=== PATIENT | female | born 1970 | race Caucasian/White ===

== ENCOUNTER → 2018-08-09 13:48 | Outpatient (CLI) | payer MEDICAID, SELFPAY ==
--- NOTE | 2018-08-09 13:50 | US_ITS ---
US transvaginal HISTORY: ITS.REASON: POST MENOPAUSAL BLEEDING, DUB ORDERING PHYSICIAN: Laura Philippe APRN PATIENT AGE: 47 years Comparison: None FINDINGS: The uterus is enlarged at 10.5 x 6 x 7.4 cm with a combined endometrial thickness of 26 mm. There is a 13 x 5 mm area of decreased echogenicity in the anterior aspect of the uterine wall and measures fibroid. There is an additional isoechoic area in the anterior aspect of the uterus measuring approximately 1 cm and may represent a uterine polyp. An area of increased echogenicity is present in the fundus of the uterus and 18 x 10 mm consistent with a fibroid. There is a septated left ovarian cyst measuring 4.3 x 3 cm. The right ovary has an unremarkable appearance at 2.7 x 2.3 cm. Small amount fluid is present in the cul-de-sac. IMPRESSION: 1. Enlarged uterus with thickened endometrium and possible endometrial polyp along with at least 2 uterine fibroids. 3. 4 cm septated left ovarian cyst
== END ==
PROVIDERS: PCP Nurse Practitioner Family; Visit Provider Nurse Practitioner Family
DX: N95.9 Unspecified menopausal and perimenopausal disorder (principal); N93.9 Abnormal uterine and vaginal bleeding, unspecified
CPT/HCPCS: 76830

== ENCOUNTER → 2018-08-16 11:08 | Outpatient (CLI) | payer MEDICAID, SELFPAY ==
--- NOTE | 2018-08-16 11:13 | XR_ITS ---
XR ankle wt bearing LT min 3V HISTORY: ITS.REASON: pain ORDERING PHYSICIAN: Elmira Flores DPM PATIENT AGE: 47 years Comparison: 03/28/2018 FINDINGS: Status post ORIF of the distal fibula with a lateral bone plate and multiple screws. There are 2 screws present within the medial malleoli region. The most medial of these 2 screws is fractured in its center aspect with minimal distraction of the ends of the screw by 2 mm. Overall not significant change. There remains good alignment. There are mild posttraumatic degenerative changes at the ankle joint. Ankle mortise is slightly widened. There is some calcification of the interosseous region of the distal tib-fib IMPRESSION: Overall no change status post ORIF of the ankle with a fractured screw in the medial malleoli region and mild widening of the ankle mortise
--- NOTE | 2018-08-16 11:13 | XR_ITS ---
XR ankle wt bearing RT min 3V HISTORY: ITS.REASON: pain ORDERING PHYSICIAN: Elmira Flores DPM PATIENT AGE: 47 years Comparison: None FINDINGS: No fracture or dislocation. No lytic or blastic change. There is normal mineralization.. The joint spaces are well-preserved. No significant degenerative/arthritic changes. No erosive changes evident. IMPRESSION: Negative ankle, no acute finding
== END ==
PROVIDERS: PCP Nurse Practitioner Family; Visit Provider Podiatrist
DX: M25.572 Pain in left ankle and joints of left foot (principal); M25.571 Pain in right ankle and joints of right foot
CPT/HCPCS: 73610

== ENCOUNTER → 2018-08-18 09:20 | Outpatient (CLI) | payer MEDICAID, SELFPAY ==
--- NOTE | 2018-08-18 09:23 | US_ITS ---
US liver HISTORY: Follow-up liver lesions ITS.REASON: liver cyst ORDERING PHYSICIAN: Roberto Billingsley MD PATIENT AGE: 47 years COMPARISON: None FINDINGS: PANCREAS:Unremarkable. No obvious mass or abnormal fluid collection. No ductal dilatation LIVER:There is a hyperechoic focus in the hepatic dome measuring 13 mm. There has been a prior cholecystectomy with common duct dilatation of 9 mm. Portal vein has an unremarkable appearance. RIGHT KIDNEY:Unremarkable. Normal size and echogenicity. No hydronephrosis Gallbladder: Prior cholecystectomy. Common duct is enlarged at 1 cm. There is mild intrahepatic biliary prominence. IMPRESSION: 1. 13 mm hyperechoic hepatic lesion in the right hepatic lobe which may correspond to the isodensity noted on the CT scan. Differential diagnosis would include hemangioma, focal nodular hyperplasia, or hepatic adenoma. A hyperechoic metastatic focus is included in the differential diagnosis. Old ultrasound is performed at another institution and not available for comparison. COMPARISON may be performed if that study is made available. Suggest 3 month sonographic follow-up to confirm stability. 2. Prior cholecystectomy with intra and extrahepatic biliary ductal dilatation
== END ==
PROVIDERS: PCP Nurse Practitioner Family; Visit Provider Obstetrics & Gynecology
DX: K76.89 Other specified diseases of liver (principal)
CPT/HCPCS: 76705

== ENCOUNTER → 2018-08-30 15:55 | Outpatient (CLI) | payer MEDICAID, SELFPAY ==
[2018-08-30 16:16] LABS: Hematocrit 34.5 % (37.0-47.0); Hemoglobin 11.5 g/dL (12.2-16.2)
== END ==
PROVIDERS: Visit Provider Obstetrics & Gynecology
DX: D21.9 Benign neoplasm of connective and other soft tissue, unspecified (principal)
CPT/HCPCS: 36415; 85014; 85018

== ENCOUNTER → 2018-09-13 14:06 | Outpatient (CLI) | payer MEDICAID, SELFPAY ==
[2018-09-13 14:08] LABS: Microscopic, Urine URINE MICROSCOPIC (MICROSCOPIC)
[2018-09-13 14:59] LABS: Appearance,Urine CLEAR (Clear); Bilirubin,Urine Negative (Negative); Blood, Urine TRACE-L (Negative); Color,Urine YELLOW (Yellow); Glucose,Urine (UA) Negative (Negative); Ketones,Urine Negative (Negative); Leukocyte Esterase,Urine TRACE (Negative); Nitrate,Urine Negative (Negative); PH,Urine 6.5 (5.0-8.5); Protein,Urine TRACE (Negative); Urobilinogen,Urine 0.2 EU/dl (0.2)
[2018-09-13 15:02] LABS: Basophils % 0.8 % (0.1-2.0); Eosinophils % 1.5 % (0.1-12.0); Hematocrit 27.7 % (37.0-47.0); Hemoglobin 8.5 g/dL (12.2-16.2); Lymphocytes % 50.9 % (10-50); Mean Corpuscular HGB Conc 30.6 g/dL (31.8-35.4); Mean Corpuscular Hemoglobin 27.8 pg (27.0-31.2); Mean Corpuscular Volume 90.8 fl (81-99); Mean Platelet Volume 8.4 fl (7.4-10.4); Monocytes # 0.3 K/mm3 (0.1-1.0); Monocytes % 12.8 % (1.7-9.3); Neutrophils # 0.7 K/mm3 (1.8-7.8); Platelet Count 366 K/mm3 (142-424); Red Blood Count 3.05 M/mm3 (4.20-5.40); Red Cell Distribution Width 13.1 % (11.5-17.5)
[2018-09-13 15:07] LABS: MANUAL DIFFERENTIAL MANUAL DIFFERENTIAL (MANUAL DIFF)
[2018-09-13 15:30] LABS: Bacteria,Urine 1+ /lpf; Mucus,Urine 1+ /lpf
[2018-09-13 16:50] LABS: Alanine Aminotransferase 39 U/L (12-78); Albumin Level 3.4 gm/dL (3.4-5.0); Albumin/Globulin Ratio 1.1 (1.1-1.8); Alkaline Phosphatase 117 U/L (46-116); Anion Gap 15.5 mEq/L (5-15); Aspartate Amino Transferase 22 U/L (15-37); Bilirubin,Total 0.3 mg/dL (0.2-1.0); Blood Urea Nitrogen 18 mg/dL (7-18); Calcium 8.4 mg/dL (8.5-10.1); Carbon Dioxide 23 mmol/L (21.0-32.0); Chloride 107 mmol/L (98-107); Creatinine,Serum 1.08 mg/dL (0.55-1.02); Estimated Glomerular Filt Rate 54 ml/min (>60); GFR (African American) 66 ML/MIN (>60); Glucose 125 mg/dL (74-106); Potassium 4.5 mmoL/L (3.5-5.1); Sodium 141 mmol/L (136-145); Total Protein,Serum 6.4 gm/dL (6.4-8.2)
[2018-09-13 18:04] LABS: Eosinophils % 2 % (0-3); Lymphocytes % 53 % (10-50); Monocytes % 10 % (2-9); Neutrophils % 34 % (42-76); Total Cells Counted 100
[2018-09-13 18:06] LABS: Hypochromasia 2+
[2018-09-13 18:07] LABS: Platelet Estimate Normal
[2018-09-13 19:04] LABS: HCG Qualitative, Serum Negative (Negative)
== END ==
PROVIDERS: Visit Provider Obstetrics & Gynecology
DX: Z01.818 Encounter for other preprocedural examination (principal); N93.8 Other specified abnormal uterine and vaginal bleeding; D25.9 Leiomyoma of uterus, unspecified
CPT/HCPCS: 36415; 80053; 81001; 84703; 85007; 85025; 86850; 87086

== ENCOUNTER 2018-09-14 08:58 | Outpatient (CLI) | payer MEDICAID, SELFPAY ==
[2018-09-14] VITALS (18 sets, daily range): BP systolic 100–130; BP diastolic 58–83; PULSE 66–103; RESP 16–18; TEMP 36.2–36.8; O2SAT 98–100; BMI 32.9
[2018-09-14 14:46] LABS: Hematocrit 34.5 % (37.0-47.0); Hemoglobin 11.7 g/dL (12.2-16.2)
== END 2018-09-14 14:50 | disposition home or self-care (01) ==
LOC: INF 08:58
PROVIDERS: Visit Provider Obstetrics & Gynecology
DX: D64.9 Anemia, unspecified (principal)
CPT/HCPCS: 36430; 85014; 85018; P9016

== ENCOUNTER 2018-09-15 06:07 | Day surgery (SDC) | payer MEDICAID, SELFPAY ==
[2018-09-14 10:15] VITALS: BMI 34.4
[2018-09-15] VITALS (9 sets, daily range): BP systolic 96–131; BP diastolic 64–78; PULSE 74–95; RESP 16–20; TEMP 36.2–36.5; O2SAT 94–100
[2018-09-15 07:26] LABS: Basophils % 0.5 % (0.1-2.0); Eosinophils # 0.1 K/mm3 (0.0-0.4); Eosinophils % 2.2 % (0.1-12.0); Lymphocytes # 1.9 K/mm3 (0.7-4.5); Lymphocytes % 63.9 % (10-50); Mean Corpuscular HGB Conc 34.6 g/dL (31.8-35.4); Mean Corpuscular Hemoglobin 29.9 pg (27.0-31.2); Mean Corpuscular Volume 86.3 fl (81-99); Mean Platelet Volume 7.8 fl (7.4-10.4); Monocytes # 0.2 K/mm3 (0.1-1.0); Monocytes % 7.7 % (1.7-9.3); Neutrophils # 0.8 K/mm3 (1.8-7.8); Neutrophils % 25.6 % (37.0-80.0); Platelet Count 331 K/mm3 (142-424); Red Blood Count 3.78 M/mm3 (4.20-5.40); Red Cell Distribution Width 13.5 % (11.5-17.5)
[2018-09-15 07:36] LABS: Hematocrit 32.7 % (37.0-47.0); Hemoglobin 11.1 g/dL (12.2-16.2)
[2018-09-15 07:37] LABS: MANUAL DIFFERENTIAL MANUAL DIFFERENTIAL (MANUAL DIFF)
--- NOTE | 2018-09-15 07:46 | HMH.OPNOTE ---
Date of procedure: 09/15/18 Pre-op Diagnosis:: 1. Dysfunctional uterine bleeding. 2. Endometrial hyperplasia. 3. Leiomyomata uteri. 4. Left adnexal mass. 5. Anemia. 6. History of breast cancer. 7. Status post transfusion. Post-op Diagnosis:: Same. Plus leukopenia on preop labs. Procedure performed:: Anesthesia initiated, but surgery canceled due to abnormal labs. Surgeon:: Roberto Billingsley MD Stone Breaker(s):: [facility] CURER ACID DRUM:: Bryson Gregorio Anesthesia: GETJennifer Estimated blood loss (mL): 0 Operative findings:: Surgery canceled due to abnormal lab work. Operative note:: None. Surgery canceled due to abnormal lab work. Post transfusion of 2 units of packed cells yesterday, patient's hemoglobin dafne to 11.1 g and hematocrit to 32.7%. However her white count was returned at 3.0 and her neutrophils at 25.6. Because of concern to the risk of postop infection and a compromised immune system, the surgery has been canceled for now--until the patient is cleared by her oncologist. Condition: stable Disposition: same day Specimens:: None. Complications:: None.
--- NOTE | 2018-09-15 07:49 | P.OP_ITS ---
Date of procedure: 09/15/18 Pre-op Diagnosis:: 1. Dysfunctional uterine bleeding. 2. Endometrial hyperplasia. 3. Leiomyomata uteri. 4. Left adnexal mass. 5. Anemia. 6. History of breast cancer. 7. Status post transfusion. Post-op Diagnosis:: Same. Plus leukopenia on preop labs. Procedure performed:: Anesthesia initiated, but surgery canceled due to abnormal labs. Surgeon:: Roberto Billingsley MD Encephalographer([facility]:: [facility] MEDICAL SCREENER:: Bryson Gregorio Anesthesia: GETJennifer Estimated blood loss (mL): 0 Operative findings:: Surgery canceled due to abnormal lab work. Operative note:: None. Surgery canceled due to abnormal lab work. Post transfusion of 2 units of packed cells yesterday, patient's hemoglobin dafne to 11.1 g and hematocrit to 32.7%. However her white count was returned at 3.0 and her neutrophils at 25.6. Because of concern to the risk of postop infection and a compromised immune system, the surgery has been canceled for now--until the patient is cleared by her oncologist. Condition: stable Disposition: same day Specimens:: None. Complications:: None.
--- NOTE | 2018-09-15 07:58 | HMH.ANESCL ---
[facility] Anesthesia Checklist - Patient Identification Patient Identification: Arm Band, Verbal (Name & ) - Structural Data Admitted From: Home Planned Operative Procedure/s: [facility] Consent for Planned Operative Procedure(s) Verified: Yes Verified Documents: History and Physical - NPO Status Verified Time NPO: 00:00 - Additional verifications Patient : No Anesthesia Reactions: No Hx Blood Transfusions: No Blood Transfusion Reaction: No Cephalosporin Allergy: No Previous Colonoscopy: No - Cardiovascular Assessment Heart Sounds: S1 & S2 Pulse Strength: Baseline Pulse Rhythm: Regular Peripheral Edema: No - Airway Assessment C-Spine Mobility Assessed: Yes TMJ Mobility Assessed: Yes Dentition: Good Dentition - Neurological Assessment Level of Consciousness: Awake, Alert, Appropriate Hx Seizures: No Numbness or tingling in extremities: No - Anesthesia Plan Anesthesia Risk discussed: Yes Anesthesia Plan: Verified ASA Class: II [facility] History I have reviewed the patient's past medical history: Yes Medical History: Reports:: Anxiety, Cancer, Depression, Hypertension Denies:: Diabetes Mellitus Type 1, Diabetes Mellitus Type 2, MRSA, Seizures *Have you ever received a pneumonia vaccine?: No *Have you received a flu vaccine this season?: No Other Medical History: Denies: Blood Transfusion Reaction Laterality Cases: Left: Breast Biopsy, Mastectomy Amputation: No Fractures: Yes (l foot) - *Social History Educational Level: Completed High School Smoking Status: Former smoker Tobacco Type: cigarettes # Packs/Day (cigarettes): 1 Alcohol Intake: never Alcohol Intake Frequency:: other Substance Use Type: denies use *Occupational Status:: unemployed, other Housing: house *Travel in the last 8 weeks: None - Psychiatric History Expresses thoughts of harming self/others: None Suicide Plan Description: No Plan Pschychiatric History:: Reports:: Anxiety, Depression Family Hx:: Cancer, Stroke, Heart Attack, Hypertension
--- NOTE | 2018-09-15 08:00 | P.PN_ITS ---
[facility] Anesthesia Record Part I Intake, IV Amount: 350 Estimated blood loss (mL): 0 Urine output (mL): 30 Blood Products used (#): none Blood Pressure: 122/78 SaO2: 94 Pulse Rate: 86 Respiratory Rate: 20 Temperature: 97.2 F Patient is:: Awake, Stable Stable to PACU at:: 07:56
--- NOTE | 2018-09-15 08:00 | P.PN_ITS ---
[facility] Anesthesia Record Part II Discharge Time: 08:26 Destination: Surgical Day Care (OP Surgery) PACU nurse assessment reviewed?: Yes Patient Condition:: Good Anesthesia Complications:: None Swallowing reflex intact?: Yes Cyanosis?: No
[2018-09-15 08:08] LABS: Lymphocytes % 66 % (10-50); Monocytes % 7 % (2-9); Neutrophils % 25 % (42-76); Total Cells Counted 100
[2018-09-15 08:12] LABS: Platelet Estimate Normal
--- NOTE | 2018-09-15 08:39 | PC.NURSE ---
Pt procedure cancelled after being sedated due to low WBC. Pt recovered from anesthesia no incisions made , no dressings. No pain
--- NOTE | 2018-09-15 10:50 | SUR.OPER ---
0716-Dr. Billingsley was notified at this time of patient's pre op lab results to verify that no additional lab work was needed prior to procedure. Induction of anesthesia was made by RANJANA Ochoa. ordered after induction of anesthesia for patient to have additional CBC lab work prior to incision. was notified of results from CBC and decision was made to abort the case. After reversal of anesthesia, patient was taken to recovery in stable condition.
== END 2018-09-15 08:57 | disposition home or self-care (01) ==
LOC: SDC 08:02
PROVIDERS: PCP Nurse Practitioner Family; Visit Provider Obstetrics & Gynecology
PROC: (CPT 58150; principal; 2018-09-15 07:30)
DX: N93.8 Other specified abnormal uterine and vaginal bleeding (principal); N85.00 Endometrial hyperplasia, unspecified; D25.9 Leiomyoma of uterus, unspecified; R19.09 Other intra-abdominal and pelvic swelling, mass and lump; D64.9 Anemia, unspecified; D72.819 Decreased white blood cell count, unspecified; C50.919 Malignant neoplasm of unspecified site of unspecified female breast
CPT/HCPCS: 58150; 85007; 85025; 96372; 96374

== ENCOUNTER → 2018-09-29 12:34 | Outpatient (CLI) | payer MEDICAID, SELFPAY ==
[2018-09-29 12:58] LABS: Basophils % 0.7 % (0.1-2.0); Eosinophils # 0.1 K/mm3 (0.0-0.4); Eosinophils % 1.7 % (0.1-12.0); Hematocrit 36.7 % (37.0-47.0); Hemoglobin 11.4 g/dL (12.2-16.2); Lymphocytes # 1.4 K/mm3 (0.7-4.5); Lymphocytes % 36.5 % (10-50); Mean Corpuscular HGB Conc 31.1 g/dL (31.8-35.4); Mean Corpuscular Hemoglobin 26.6 pg (27.0-31.2); Mean Corpuscular Volume 85.8 fl (81-99); Mean Platelet Volume 8.5 fl (7.4-10.4); Monocytes # 0.3 K/mm3 (0.1-1.0); Monocytes % 7.6 % (1.7-9.3); Neutrophils % 53.5 % (37.0-80.0); Platelet Count 227 K/mm3 (142-424); Red Blood Count 4.27 M/mm3 (4.20-5.40); Red Cell Distribution Width 13.4 % (11.5-17.5); White Blood Count 3.8 K/mm3 (4.8-10.8)
== END ==
PROVIDERS: Visit Provider Internal Medicine Hematology & Oncology
DX: D72.819 Decreased white blood cell count, unspecified (principal)
CPT/HCPCS: 36415; 85025

== ENCOUNTER 2018-10-18 10:00 | Outpatient (RCR) | payer MEDICAID, SELFPAY ==
--- NOTE | 2018-09-29 13:28 | HMH.PTOPWND ---
Rehab Outpt Wound Evaluation Rehab OP Wound Evaluation Start: 09/29/18 13:02 Freq: Status: Active Protocol: Document 09/29/18 13:19 MONTRELL (Rec: 09/29/18 13:28 PHORDAVINA [id number]) Electronically Signed By Trevor Guevara, PT 09/29/18 13:19 Subjective/History History History Pt is 47 yowf who presents with c/o increased pain and stiffness in the left UE ~ 2 yrs S/P left mastectomy without LN removal. She also reports c/o heaviness in the left UE at times. She reports tenderness in the superior left breast area and mildly in the upper left arm. She has hx of cervical fusion, left mastectomy, anxiety, and needs a KARINA but was unable to undergo the procedure due to poor blood counts at that time . Subjective Subjective She c/o pain in the left breast/shld 9/10 at worst. Lymphedema Eval Classification of Lymphedema Secondary Lymphedema Yes Stemmer's sign Stemmer's Sign no Stage of Lymphedema Lymphedema stages Stage 0 (subjective c/o heaviness and aching) Pain Scale Pain Scale (0-10) 9 Chemo Therapy Has received chemo therapy yes Affected Extremities Areas Affected by Lymphedema/Edema Left Upper Extremity,Left Breast,Left Axilla Manual Lymphatic Drainage Treatment Area MLD Treatment Area Left Upper Extremity,Left Breast,Left Axilla Wound Problems/Impairments Impairments Problems/Impairmments Palpation Tenderness,Impaired Recreational Activities, Increased Edema,Lymphedema Present,Subjective C/O Pain, Impaired Self Care/Self Management Prognosis Rehab Potential Good Clinical Impression Consistent with Diagnosis Yes Short Term Goals Number of Weeks 4 Decreased Palpation Tenderness Yes: to min Decrease Subjective C/O Pain Yes: 10/26 Patient to Understand Lymphedema Yes Treatment and Exercises Decrease Girth Measurments by (cm) Yes: by 5 cm Wharf Tender Goals Number of Weeks 8 Decreased Palpation Tenderness Yes: to none Decrease Subjective C/O Pain Yes: 08/26 Patient to be Ind w/ HEP Yes Patient to be In
== END 2018-10-18 10:05 | disposition home or self-care (01) ==
LOC: PT 10:00
PROVIDERS: Visit Provider Internal Medicine Medical Oncology
DX: I89.0 Lymphedema, not elsewhere classified (principal); Z85.3 Personal history of malignant neoplasm of breast
CPT/HCPCS: 97140; 97162

== ENCOUNTER → 2018-10-18 10:22 | Outpatient (CLI) | payer MEDICAID, SELFPAY ==
[2018-10-18 10:28] LABS: Microscopic, Urine URINE MICROSCOPIC (MICROSCOPIC)
[2018-10-18 10:49] LABS: Appearance,Urine CLEAR (Clear); Bilirubin,Urine Negative (Negative); Blood, Urine Negative (Negative); Color,Urine YELLOW (Yellow); Glucose,Urine (UA) Negative (Negative); Ketones,Urine Negative (Negative); Leukocyte Esterase,Urine Negative (Negative); Nitrate,Urine Negative (Negative); Protein,Urine Negative (Negative); Specific Gravity, Urine >= 1.030 (1.005-1.030); Urobilinogen,Urine 0.2 EU/dl (0.2)
[2018-10-18 10:53] LABS: Basophils % 0.7 % (0.1-2.0); Eosinophils # 0.1 K/mm3 (0.0-0.4); Eosinophils % 3.4 % (0.1-12.0); Hemoglobin 12.1 g/dL (12.2-16.2); Lymphocytes # 1.6 K/mm3 (0.7-4.5); Lymphocytes % 39.8 % (10-50); Mean Corpuscular HGB Conc 30.9 g/dL (31.8-35.4); Mean Corpuscular Hemoglobin 27.7 pg (27.0-31.2); Mean Corpuscular Volume 89.5 fl (81-99); Mean Platelet Volume 8.8 fl (7.4-10.4); Monocytes # 0.3 K/mm3 (0.1-1.0); Monocytes % 8.2 % (1.7-9.3); Neutrophils # 1.9 K/mm3 (1.8-7.8); Neutrophils % 47.9 % (37.0-80.0); Platelet Count 273 K/mm3 (142-424); Red Blood Count 4.36 M/mm3 (4.20-5.40); Red Cell Distribution Width 14.5 % (11.5-17.5)
[2018-10-18 11:04] LABS: Urine Pregnancy, HCG Qual. Negative (Negative)
[2018-10-18 11:51] LABS: RBC,Urine Occasional #/hpf (0-3); WBC,Urine Occasional #/hpf (0-3)
[2018-10-18 11:52] LABS: Bacteria,Urine Trace /lpf
[2018-10-18 12:22] LABS: Alanine Aminotransferase 29 U/L (12-78); Albumin Level 3.2 gm/dL (3.4-5.0); Alkaline Phosphatase 109 U/L (46-116); Anion Gap 14.4 mEq/L (5-15); Aspartate Amino Transferase 24 U/L (15-37); Bilirubin,Total 0.2 mg/dL (0.2-1.0); Blood Urea Nitrogen 17 mg/dL (7-18); Calcium 8.7 mg/dL (8.5-10.1); Carbon Dioxide 24 mmol/L (21.0-32.0); Chloride 107 mmol/L (98-107); Estimated Glomerular Filt Rate 53 ml/min (>60); GFR (African American) 64 ML/MIN (>60); Globulin 3.1 gm/dl (1.3-3.2); Glucose 93 mg/dL (74-106); Potassium 4.4 mmoL/L (3.5-5.1); Sodium 141 mmol/L (136-145); Total Protein,Serum 6.3 gm/dL (6.4-8.2)
== END ==
PROVIDERS: Visit Provider Obstetrics & Gynecology
DX: Z01.818 Encounter for other preprocedural examination (principal); N93.8 Other specified abnormal uterine and vaginal bleeding; D25.9 Leiomyoma of uterus, unspecified
CPT/HCPCS: 36415; 80053; 81001; 81025; 85025

== ENCOUNTER 2018-10-24 06:05 | Inpatient (IN) ==
--- NOTE | 2018-10-24 06:51 | Progress Note ---
[facility] Anesthesia Checklist - Patient Identification Patient Identification: Arm Band, Verbal (Name & ) - Structural Data Admitted From: Home Planned Operative Procedure/s: KARINA, BSO, Appy Consent for Planned Operative Procedure(s) Verified: Yes Verified Documents: Surgical Consent, History and Physical - NPO Status Verified Time NPO: 22:30 - Chart Verification Results Verified: CBC, BMP, UA - Additional verifications Patient : No Anesthesia Reactions: No - Airway Assessment C-Spine Mobility Assessed: Yes TMJ Mobility Assessed: Yes Dentition: Good Dentition - Neurological Assessment Level of Consciousness: Awake, Alert, Appropriate, Follows Commands Hx Seizures: No Numbness or tingling in extremities: No - Anesthesia Plan Anesthesia Risk discussed: Yes Anesthesia Plan: Verified ASA Class: III Anesthesia Type: General [facility] History I have reviewed the patient's past medical history: Yes Medical History: Reports:: Anxiety, Cancer (breast), Depression, Hypertension Denies:: Diabetes Mellitus Type 1, Diabetes Mellitus Type 2, Internal Pacemaker, Lung Disease, MRSA, Seizures *Have you ever received a pneumonia vaccine?: No *Have you received a flu vaccine this season?: Yes Other Medical History: Denies: Blood Transfusion Reaction Comment:: Obesity, chemotherapy Laterality Cases: Left: Breast Biopsy, Mastectomy Other Surgeries: Yes: Cholecystectomy, Other (ACDF, Foot sx, D&C). No: Pacemaker Amputation: No Fractures: No - *Social History Educational Level: Completed High School Smoking Status: Never smoker # Packs/Day (cigarettes): 1 Alcohol Intake: never Alcohol Intake Frequency:: other Substance Use Type: denies use *Occupational Status:: unemployed, other Housing: house Household Members: family *Travel in the last 8 weeks: None - Psychiatric History Pschychiatric History:: Reports:: Anxiety, Depression Family Hx:: Cancer, Stroke, Heart Attack, Hypertension
--- NOTE | 2018-10-24 08:36 | Operative Note ---
Date of procedure: 10/24/18 (Patient with known breast cancer and endometrial hyperplasia/leiomyomata uteri.) Pre-op Diagnosis:: 1. Dysfunctional uterine bleeding. 2. Endometrial hyperplasia. 3. Leiomyomata uteri. Post-op Diagnosis:: 1. Dysfunctional uterine bleeding. 2. Endometrial hyperplasia. 3. Leiomyomata uteri. Procedure performed:: Total abdominal hysterectomy, bilateral salpingo-oophorectomy. Surgeon:: Roberto Billingsley MD Water Treatment Operator(s):: DENICE Kaye CLOTHING PRESSER:: Bryson Gregorio Anesthesia: DIANA Estimated blood loss (mL): 300 Operative findings:: 1. Endometrial hyperplasia. 2. Leiomyomata uteri. Operative note:: After the patient was prepped and draped in usual fashion and general anesthesia was administered, a low Pfannenstiel incision was made across the midline, and the fat and fascia was in the usual fashion, bleeders being clamped and coagulated along the way. The peritoneum was entered with Metzenbaum scissors, and extended above and below. The bowel was packed away, and a self- retaining Troy retractor with bladder blade was placed. The uterus was sym metrically enlarged. Each tube and ovary was identified. Both ovaries were atrophic. The round ligament on either side was Fifi clamped, cut, and Fifi suture with #1 Vicryl, after which the bladder peritoneum was taken down with Metzenbaum scissors and protected with the bladder blade. The infundibulopelvic ligament on either side was Fifi clamped, cut, and Fifi suture with #1 Vicryl, thus including both adnexa within the uterine specimen. The uterine vessels, the cardinal and uterosacral ligaments were individually, bilaterally, Fifi clamped, cut, and Fifi sutured with #1 Vicryl. The vagina was entered anteriorly with a knife, and the uterine specimen was removed with Linda scissors. Giovani clamps were used to tent up the vaginal cuff, which was closed with a running locked suture of #1 Vicryl, to include the uterosacral ligament pedicles for vaginal support. Gelfoam was placed against the back of the vaginal cuff for hemostasis. The bladder peritoneum was reperitonealized with a running unlocked suture of 2-0 Vicryl. Irrigation was carried out, and there was no other pathology noted. The appendix appeared to be retrocecal and remains in situ. The peritoneum was grasped with 3 Whit clamps, and closed with a running semi-lock suture of 0 Vicryl. The muscle was approximated with a running unlocked suture of 0 Vicryl. The fascia was closed with a running locked suture of #1 Vicryl. The subcutaneous fat and Billy's fascia were closed with a running unlocked suture of 2-0 Vicryl. The skin was closed with a subcuticular suture of 3-0 Vicryl, and appropriately dressed. The sponge needle count was correct. The estimated blood loss was 300 cc. The urine was clear in the Cuellar catheter. The patient tolerated the procedure well, and was taken to PACU in excellent condition. She will be admitted postoperatively. Condition: stable Disposition: PACU Specimens:: Uterus and both adnexa Complications:: None
--- NOTE | 2018-10-24 08:40 | Progress Note ---
[facility] Anesthesia Record Part I Intake, IV Amount: 900 Estimated blood loss (mL): 300 Urine output (mL): 50 Blood Products used (#): none Blood Pressure: 145/88 SaO2: 100 Pulse Rate: 90 Respiratory Rate: 20 Temperature: 97.0 F Patient is:: Drowsy, Nasal O2, Stable Stable to PACU at:: 08:36
--- NOTE | 2018-10-24 08:41 | Progress Note ---
[facility] Anesthesia Record Part II Discharge Time: 09:06 Destination: Obstetric Gynecology Dept PACU nurse assessment reviewed?: Yes Patient Condition:: Good Anesthesia Complications:: None Swallowing reflex intact?: Yes Cyanosis?: No
[2018-10-24 11:33] LABS: Hematocrit 35.2 % (37.0-47.0); Hemoglobin 10.7 g/dL (12.2-16.2)
--- NOTE | 2018-10-24 11:34 | Pharmacy Consult Notes ---
[facility] Pharmacy VTE Monitoring - Patient Demographics Admission date: 10/24/18 Report Date: 10/24/18 Time: 11:34 Allergies/Adverse Reactions: Patient Allergies No Known Allergies Allergy (Verified 10/18/18 16:16) Height: 1.57 m Weight: 86.183 kg - VTE Risk Was VTE Risk Assessment Performed: Yes VTE Score: 4 VTE Risk Level: Low Risk - Prophylaxis VTE Prophylaxis Ordered?: Yes Types of VTE Prophylaxis: IPCS Thigh High Location of Applied Device: Bilateral Lower Extremeties - VTE Diagnosis Confirmed Treatment or plan recommended: Continue Current Treatment
--- NOTE | 2018-10-24 15:09 | Progress Note ---
Internal Medicine - PN: Subj *Date: 10/24/18 *Time: 15:08 Interval history: This is day of surgery. The patient is afebrile. Vital signs stable. Urine output good. Wound clean. Abdomen soft. Surgery has been explained to the patient. Impression: Stable. Exam Vital signs and Labs for Last 24 Hours: Temp Pulse Resp BP Pulse Ox 98.1 F 112 H 16 105/89 L 97 10/24/18 12:15 10/24/18 14:15 10/24/18 14:15 10/24/18 14:15 10/24/18 14:15 Laboratory Results - last 24 hr 10/24/18 07:15: Urine Color Yellow, Urine Appearance Clear, Urine pH 5.5, Ur Specific Cherry >= 1.030, Urine Protein Negative, Urine Glucose (UA) Negative, Urine Ketones Negative, Urine Blood Negative, Urine Nitrate Negative, Urine Bilirubin Negative, Urine Urobilinogen 0.2, Ur Leukocyte Esterase Negative, Urine WBC Occasional, Ur Squamous Epith Cells 5-10, Urine Bacteria Trace 10/24/18 11:20: Hgb 10.7 L, Hct 35.2 L I & O for Last 24 hours: Intake & Output 10/22/18 10/23/18 10/24/18 10/25/18 11:59 11:59 11:59 11:59 Intake Total 900 / 900 Balance 900 / 900
--- NOTE | 2018-10-25 07:06 | Progress Note ---
Internal Medicine - PN: Subj *Date: 10/25/18 *Time: 07:04 Interval history: This is postop day #1. The patient is afebrile. Vital signs stable. Wound clean. Abdomen soft. Cuellar is out and she has voided well. She is complaining of some itching (likely from pain medication), and has been given a dose of Benadryl. I am going to advance her diet and have her ambulate today. Exam Vital signs and Labs for Last 24 Hours: Temp Pulse Resp BP Pulse Ox 98.8 F 114 H 20 131/83 97 10/25/18 04:00 10/25/18 04:00 10/25/18 04:00 10/25/18 04:00 10/24/18 23:51 Laboratory Results - last 24 hr 10/24/18 07:15: Urine Color Yellow, Urine Appearance Clear, Urine pH 5.5, Ur Specific [place] >= 1.030, Urine Protein Negative, Urine Glucose (UA) Negative, Urine Ketones Negative, Urine Blood Negative, Urine Nitrate Negative, Urine Bilirubin Negative, Urine Urobilinogen 0.2, Ur Leukocyte Esterase Negative, Urine WBC Occasional, Ur Squamous Epith Cells 5-10, Urine Bacteria Trace 10/24/18 11:20: Hgb 10.7 L, Hct 35.2 L I & O for Last 24 hours: Intake & Output 10/22/18 10/23/18 10/24/18 10/25/18 11:59 11:59 11:59 11:59 Intake Total 900 / 900 2167 / 2167 Output Total 3450 / 3450 Balance 900 / 900 -1283 / -1283 Weight 190 lb
[2018-10-25 09:56] LABS: Basophils % 0.1 % (0.1-2.0); Eosinophils % 0.1 % (0.1-12.0); Hematocrit 33.2 % (37.0-47.0); Lymphocytes # 1.7 K/mm3 (0.7-4.5); Lymphocytes % 11.4 % (10-50); Mean Corpuscular HGB Conc 30.1 g/dL (31.8-35.4); Mean Corpuscular Volume 90.1 fl (81-99); Mean Platelet Volume 8.6 fl (7.4-10.4); Monocytes # 0.7 K/mm3 (0.1-1.0); Monocytes % 4.9 % (1.7-9.3); Neutrophils # 12.5 K/mm3 (1.8-7.8); Neutrophils % 83.4 % (37.0-80.0); Platelet Count 236 K/mm3 (142-424); Red Blood Count 3.69 M/mm3 (4.20-5.40); Red Cell Distribution Width 14.8 % (11.5-17.5)
[2018-10-25 10:41] LABS: Lymphocytes % 10 % (10-50); Monocytes % 5 % (2-9); Neutrophils % 84 % (42-76); Total Cells Counted 100
[2018-10-25 10:42] LABS: RBC Morphology Normal
--- NOTE | 2018-10-26 06:39 | Progress Note ---
Internal Medicine - PN: Subj *Date: 10/26/18 *Time: 06:37 Interval history: This is postop day #2. The patient is afebrile. Vital signs stable. Wound clean. Abdomen soft. She is passing flatus. She is eating and ambulating. Her urine output is good. She is having some vasomotor sweats (not a candidate for estrogen because of breast cancer). Impression: Improving. Exam Vital signs and Labs for Last 24 Hours: Temp Pulse Resp BP Pulse Ox 97.9 F 114 H 17 103/57 L 97 10/26/18 02:00 10/26/18 02:00 10/26/18 02:00 10/26/18 02:00 10/25/18 16:00 Laboratory Results - last 24 hr 10/25/18 09:08: WBC 15.0 H, RBC 3.69 L, Hgb 10.0 L, Hct 33.2 L, MCV 90.1, MCH 27.2, MCHC 30.1 L, RDW 14.8, Plt Count 236, MPV 8.6, Neut % (Auto) 83.4 H, Lymph % (Auto) 11.4, [place] % (Auto) 4.9, Eos % (Auto) 0.1, Baso % (Auto) 0.1, Neut # (Auto) 12.5 H, Lymph # (Auto) 1.7, [place] # (Auto) 0.7, Eos # (Auto) 0.0, Baso # (Auto) 0.0, Total Counted 100, Neutrophils % (Manual) 84 H, Band Neutrophils % 1.0, Lymphocytes % (Manual) 10, Monocytes % (Manual) 5, Platelet Estimate Normal, RBC Morphology Normal I & O for Last 24 hours: Intake & Output 10/23/18 10/24/18 10/25/18 10/26/18 11:59 11:59 11:59 11:59 Intake Total 900 / 900 2867 / 2867 600 / 600 Output Total 3450 / 3450 Balance 900 / 900 -583 / -583 600 / 600 Weight 190 lb
--- NOTE | 2018-10-27 08:44 | Progress Note ---
Internal Medicine - PN: Subj *Date: 10/27/18 *Time: 08:44 Interval history: This is postop day #3. The patient is afebrile. Vital signs stable. Wound clean. Abdomen soft. She is eating and ambulating and has had a bowel movement. Her hemoglobin is 10.0 g, but clinically stable. She will be discharged today. Exam Vital signs and Labs for Last 24 Hours: Temp Pulse Resp BP Pulse Ox 98.1 F 88 16 113/80 97 10/27/18 04:30 10/27/18 04:30 10/27/18 04:30 10/27/18 04:30 10/27/18 07:53 I & O for Last 24 hours: Intake & Output 10/24/18 10/25/18 10/26/18 10/27/18 11:59 11:59 11:59 11:59 Intake Total 900 / 900 2867 / 2867 600 / 600 360 / 360 Output Total 3450 / 3450 Balance 900 / 900 -583 / -583 600 / 600 360 / 360 Weight 190 lb
--- NOTE | 2018-10-27 08:47 | Discharge Summary ---
General - General Admission date:: 10/24/18 Discharge date: 10/27/18 (This 47-year-old white female was admitted for definitive treatment of dysfunctional uterine bleeding, leiomyoma uteri, and endometrial hyperplasia. She has been treated for breast cancer. On the date of admission, she was taken to the operating room, where she underwent a total abdominal hysterectomy and bilateral salpingo-nephrectomy, without complications. Her hemoglobin on admission was 12.1 g; postoperatively it is 10.0 g, but she is clinically stable. Postoperatively, the patient is doing well. She is eating and ambulating, and has had a bowel movement. Her wound is clean. Her abdomen is soft. Her hemoglobin on admission was 12.1 g; postoperatively it is 10.0 g, but she is clinically stable. She is discharged home on the third postoperative day on iron twice a day and on Dilaudid 2 mg (#20), 1 p.o. q. 6 age as needed pain. She is given appropriate instructions as to diet, exercise, and wound care, and she is to return the office in 2 weeks for follow-up. She is not a smoker. She did not receive postop hormone replacement because of her history of breast cancer.) Objective Vital signs: Temp Pulse Resp BP Pulse Ox 98.1 F 88 16 113/80 97 10/27/18 04:30 10/27/18 04:30 10/27/18 04:30 10/27/18 04:30 10/27/18 07:53 Discharge Plan - Patient Discharge Instructions Patient Instructions: Hysterectomy -- Open Surgery, DI for Surgical Site Infection - Follow up Plan Home Medications: Home Medications Medication Instructions Recorded Confirmed Type Lisinopril [Lisinopril 20mg Tab] 20 mg PO DAILY 05/25/18 10/24/18 History diclofenac sodium 50 mg 50 mg PO TIDWM 08/16/18 10/25/18 History tablet,delayed release quetiapine 50 mg tablet 50 mg PO DAILY 08/16/18 10/25/18 History Duloxetine HCl [Cymbalta] 120 mg PO HS 10/25/18 10/25/18 History hydrOXYzine HCl [Hydroxyzine HCl] 25 - 50 mg PO Q8HP PRN 10/25/18 10/25/18 History Prescriptions/Medication Reconciliation: No Action quetiapine 50 mg tablet 50 mg PO DAILY diclofenac sodium 50 mg tablet,delayed release 50 mg PO TIDWM Lisinopril [Lisinopril 20mg Tab] 20 mg PO DAILY hydrOXYzine HCl [Hydroxyzine HCl] 25 - 50 mg PO Q8HP PRN PRN Reason: Anxiety Duloxetine HCl [Cymbalta] 120 mg PO HS
== END 2018-10-27 11:20 | disposition home or self-care (01) | DRG 743 ==
LOC: 2ND 06:05 → OR 06:05 → OBSVTOIN 06:11 → OB 07:28
PROVIDERS: ADMIT Obstetrics & Gynecology; ATTEND Obstetrics & Gynecology
CPT/HCPCS: 36415; 81001; 85007; 85014; 85018; 85025; 96372; 96374; J2405; J2710

== ENCOUNTER → 2018-11-01 07:56 | Outpatient (CLI) | payer MEDICAID, SELFPAY ==
--- NOTE | 2018-11-01 07:56 | CT_ITS ---
CT ankle LT wo con INDICATION: , Pain, fracture, prior ORIF Surgical planning for revision of orthopedic hardware ITS.REASON: surgical planning ORDERING PHYSICIAN: Elmira Flores DPM PATIENT AGE: 47 years COMPARISON: 08/16/2018 TECHNIQUE: Contrast Used:None Oral Contrast: None Axial images were obtained. Sagittal and coronal reformatted images are reviewed as well. All CT scans at the facility use one or more dose reduction, viz: automated exposure control, ma/kV adjustment per patient size (including targeted exams where dose is matched to indication, i.e. head), or iterative reconstruction technique. FINDINGS: There is a lateral bone plate within the fibula with multiple screws.. There is an oblique screw oriented anterior to posterior within the distal fibular shaft. There is some calcification at the interosseous ligament region of the tibiofibular area. There is mild widening of the tibiofibular space. There is also widening of the ankle mortise. The talus is displaced laterally by approximately 4 mm. There is some minimal irregularity of the talar dome medially and posteriorly. There is decrease in the tibiotalar joint space. There are 2 longitudinal screws within the medial malleoli region directed from the inferior tip of the medial malleolus superiorly. The posterior at least 2 screws is fractured and central aspect with mild medial angulation of the distal aspect of the screw. There appears to be bony sclerosis at the fracture site of the base of the medial malleolus. The distal fibular fracture also appears healed. There is some soft tissue swelling along the medial aspect of the ankle distal to the medial malleolus. IMPRESSION: 1. Status post ORIF of the distal tibia and fibula as described above. There is widening of ankle mortise with widening of the tibiofibular joint space suggesting disruption of the interosseous ligament. There is mild lateral displacement of the talus with osteoarthritic change of the tibiotalar joint. 2. Fracture is noted of the posterior screw within the medial malleolus
--- NOTE | 2018-11-01 16:51 | XR_ITS ---
XR chest 2V HISTORY: ITS.REASON: OCCASIONAL COUGH ORDERING PHYSICIAN: Elmira Flores DPM PATIENT AGE: 47 years COMPARISON: None FINDINGS: The cardiomediastinal silhouette and pulmonary vascularity are within normal limits. The lungs are clear without infiltrates, suspicious nodules, or pleural effusions. No acute bony abnormalities. There is mild lower thoracic scoliosis convex right. Bone plate is present over the lower cervical spine IMPRESSION: No acute finding
[2018-11-01 17:22] LABS: Basophils % 0.4 % (0.1-2.0); Eosinophils # 0.3 K/mm3 (0.0-0.4); Eosinophils % 3.6 % (0.1-12.0); Hematocrit 36.9 % (37.0-47.0); Lymphocytes # 1.9 K/mm3 (0.7-4.5); Lymphocytes % 22.7 % (10-50); Mean Corpuscular HGB Conc 29.8 g/dL (31.8-35.4); Mean Corpuscular Hemoglobin 25.9 pg (27.0-31.2); Monocytes # 0.6 K/mm3 (0.1-1.0); Monocytes % 6.7 % (1.7-9.3); Neutrophils # 5.7 K/mm3 (1.8-7.8); Neutrophils % 66.7 % (37.0-80.0); Platelet Count 394 K/mm3 (142-424); Red Blood Count 4.24 M/mm3 (4.20-5.40); Red Cell Distribution Width 15.2 % (11.5-17.5); White Blood Count 8.5 K/mm3 (4.8-10.8)
[2018-11-01 18:43] LABS: Anion Gap 13.9 mEq/L (5-15); Blood Urea Nitrogen 22 mg/dL (7-18); Calcium 10.4 mg/dL (8.5-10.1); Carbon Dioxide 31 mmol/L (21.0-32.0); Chloride 102 mmol/L (98-107); Creatinine,Serum 1.23 mg/dL (0.55-1.02); Estimated Glomerular Filt Rate 47 ml/min (>60); GFR (African American) 57 ML/MIN (>60); Glucose 105 mg/dL (74-106); Potassium 4.9 mmoL/L (3.5-5.1); Sodium 142 mmol/L (136-145)
== END ==
PROVIDERS: PCP Family Medicine; Visit Provider Podiatrist
DX: M19.172 Post-traumatic osteoarthritis, left ankle and foot (principal); M25.372 Other instability, left ankle; Z96.9 Presence of functional implant, unspecified
CPT/HCPCS: 36415; 71046; 73700; 80048; 82652; 85025; 93005

== ENCOUNTER 2018-11-20 12:34 | Inpatient (IN) ==
--- NOTE | 2018-11-20 13:36 | Emergency Department Note ---
ED Disposition Clinical Impression: Pelvic abscess in female Disposition: Admitted as Observation Condition on Discharge: Fair Time of Disposition: 18:25 - Critical Care Critical Care Time: No Attestation: On 11/20/18, the high probability of a clinically significant, sudden or life threatening deterioration of the following system(s) required my full and direct attention, intervention and personal management. The time I documented below is in addition to time spent performing reported procedures but includes the following listed in this critical care notation. Medical Decision Making - Medical Records Medical records reviewed: Yes: I reviewed the patient's medical records. - Tej Inquiry Pt receiving controlled substance: No Tej was queried for this patient: No Vital Signs: 11/20/18 13:08 11/20/18 15:14 11/20/18 16:58 Temperature 100.1 F H 98.1 F Temperature Source Oral Oral Pulse Rate Pulse Rate [Left Radial] 126 H 98 H Respiratory Rate 18 18 Blood Pressure Blood Pressure [Right Arm] 132/85 130/98 H Blood Pressure Mean [Right Arm] 100 108 Blood Pressure Source [Right Arm] Automatic Cuff Automatic Cuff Blood Pressure Position Blood Pressure Position [Right Arm] Sitting Sitting 02 Sat by Pulse Oximetry 98 99 Oxygen Delivery Method Room Air Room Air 11/20/18 18:19 11/20/18 18:22 Temperature 98.1 F 100 F H Temperature Source Oral Oral Pulse Rate 100 H Pulse Rate [Left Radial] 108 H Respiratory Rate 18 16 Blood Pressure 142/91 H Blood Pressure [Right Arm] 137/91 H Blood Pressure Mean [Right Arm] 106 Blood Pressure Source [Right Arm] Automatic Cuff Blood Pressure Position Sitting Blood Pressure Position [Right Arm] Sitting 02 Sat by Pulse Oximetry 100 Oxygen Delivery Method Room Air Room Air - Lab Data Lab results reviewed: Yes: I reviewed the patient's lab results. Lab Results 11/20/18 13:05: WBC 9.5, RBC 3.95 L, Hgb 11.1 L, Hct 34.5 L, MCV 87.1, MCH 28.1, MCHC 32.2, RDW 15.1, Plt Count 368, MPV 8.0, Neut % (Auto) 66.4, Lymph % (Auto) 25.7, [place] % (Auto) 5.9, Eos % (Auto) 1.7, Baso % (Auto) 0.4, Neut # (Auto) 6.3, Lymph # (Auto) 2.4, [place] # (Auto) 0.6, Eos # (Auto) 0.2, Baso # (Auto) 0.0 11/20/18 13:05: Sodium 139, Potassium 4.2, Chloride 105, Carbon Dioxide 25, Anion Gap 13.2, BUN 20 H, Creatinine 1.15 H, Estimated Creat Clear 76, Estimated GFR 51 L, Est GFR ( Amer) 61, Glucose 104, Calcium 8.9, Total Bilirubin 0.3, AST 15, ALT 35, Alkaline Phosphatase 184 H, Total Protein 7.4, Albumin 2.9 L, Globulin 4.5 H, Albumin/Globulin Ratio 0.6 L 11/20/18 13:05: Lipase 289 Result diagrams: 11/20/18 13:05 11/20/18 13:05 Orders (Tests/Meds): ED MEDICATIONS Generic Name Dose Route Start Last Admin Trade Name Freq PRN Reason Stop Dose Admin Ampicillin Sodium/Sulbactam 100 mls @ 200 mls/hr 11/20/18 18:00 11/20/18 17:56 Sodium 3 gm/ Sodium Chloride IV 12/04/18 17:59 200 mls/hr Q6H ALPHONSO Administration Protocol Discontinued Medications Generic Name Dose Route Start Last Admin Trade Name Freq PRN Reason Stop Dose Admin Diatrizoate Meglum/Diatrizoate Sod 30 ml 11/20/18 13:17 11/20/18 13:33 Gastrografin 66%-10% 30ml PO 11/20/18 13:18 30 ml ONCE ONE Administration Hydromorphone HCl 1 mg 11/20/18 13:35 11/20/18 13:36 Dilaudid 2mg/Ml Syringe IV 11/20/18 13:36 1 mg ONCE ONE Administration Hydromorphone HCl 1 mg 11/20/18 16:33 11/20/18 16:36 Dilaudid 2mg/Ml Syringe IV 11/20/18 16:34 1 mg ONCE ONE Administration Sodium Chloride 1,000 mls @ 999 mls/hr 11/20/18 13:45 11/20/18 13:36 Sod Chlor 0.9% 1000ml Bag IV 11/20/18 14:45 999 mls/hr .Q1H1M ALPHONSO Administration Ioversol 75 ml 11/20/18 15:34 11/20/18 15:35 Rad-Optiray 350 100ml Vial IV 11/20/18 15:35 75 ml ONCE ONE Administration Protocol Ondansetron HCl 4 mg 11/20/18 13:35 11/20/18 13:36 Zofran 4mg/2ml Vial IV 11/20/18 13:36 4 mg ONCE ONE Administration Ondansetron HCl 4 mg 11/20/18 16:33 11/20/18 17:35 Zofran 4mg/2ml Vial IV 11/20/18 16:34 4 mg ONCE ONE Administration Sodium Chloride 10 ml 11/20/18 15:34 11/20/18 15:35 Rad-Saline Flush 10ml Syringe IV 11/20/18 15:35 10 ml ONCE ONE Administration ORDERS Category Date Time Status Urinalysis and Microscopic Routine Lab 11/20/18 Ordered - Physician Consults Physician Consulted: hans Reason -: Admission, Pt condition Comment/Response: will see in ER Abdominal Pain HPI - General Chief Complaint: Abdominal Pain Stated Complaint: right side pain, no accident Time Seen by Provider: 11/20/18 13:33 Mode of Arrival: Ambulatory Source of Information: Patient Limitations: No Limitations Description of Symptoms (Recalled from ER Triage Doc. by RN): to ed per pvt car with c/o rlq abd pain starting yesterday +nausea, chills pt with recent hysterectomy 5 weeks ago. - History of Present Illness HPI narrative: 24 hours of lower abdominal pain, now in RLQ. Hyst, open by Hans BRUSH, 5 weeks ago - Related Data Home Medications Medication Instructions Recorded Confirmed Lisinopril [Lisinopril 20mg Tab] 20 mg PO DAILY 05/25/18 11/20/18 diclofenac sodium 50 mg 50 mg PO TIDWM 08/16/18 11/20/18 tablet,delayed release quetiapine 50 mg tablet 50 mg PO DAILY 08/16/18 11/20/18 Duloxetine HCl [Cymbalta] 120 mg PO HS 10/25/18 11/20/18 hydrOXYzine HCl [Hydroxyzine HCl] 25 - 50 mg PO Q8HP PRN 10/25/18 11/20/18 Previous Rx's Medication Instructions Recorded ibuprofen 800 mg tablet 800 mg PO BID #60 tab 11/02/18 ondansetron HCl 4 mg tablet 4 mg PO Q6H PRN #30 tab 11/02/18 Allergies Allergy/AdvReac Type Severity Reaction Status Date / Time No Known Allergies Allergy Verified 11/10/18 15:46 [facility] History - Hepatitis A Screen Drug use history?: No High risk sexual behaviors?: No History of sexually transmitted infection?: No Currently employed?: No Childcare worker?: No Do you have indoor plumbing?: Yes Do you have electricity?: Yes Attestation statement:: This patient has been screened for Hepatitis A risk factors. I have reviewed the patient's past medical history: Yes Medical History: Reports:: Anxiety, Cancer, Depression, Hypertension Denies:: Diabetes Mellitus Type 1, Diabetes Mellitus Type 2, Internal Pacemaker, Lung Disease, MRSA, Seizures Other Medical History: Denies: Blood Transfusion Reaction Comment: Obesity, chemotherapy Laterality Cases: Left: Breast Biopsy, Mastectomy Other Surgeries: Yes: Cholecystectomy, Other. No: Pacemaker Amputation: No Fractures: No Comment: 1994-BTL. 2004-Cholecystectomy. 2002-Neck fusion. 2017-Left Masectomy. 2017-ankle/foot fusion. 08/23/2018--FX. D&C - Social History Smoking Status: Never smoker Tobacco Type: cigarettes # Packs/Day (cigarettes): 1 Alcohol Intake: never Alcohol Intake Frequency:: other Substance Use Type: denies use Occupational Status: unemployed, other Housing: house Household Members: family - Psychiatric History Pschychiatric History:: Reports:: Anxiety, Depression Family Hx:: Cancer, Stroke, Heart Attack, Hypertension Comment: -NVD. M-NVD. -NVD ROS Obtained: Yes All systems reviewed & no additional complaints - Constitutional Constitutional: Reports fever(s) Physical Exam - General General appearance: alert, in no apparent distress - Eye Eye exam: Present: normal appearance - ENT ENT exam: Present: normal exam, normal oropharynx, mucous membranes moist, TM's normal bilaterally, normal external ear exam - Neck Neck exam: Present: normal inspection, full ROM, trachea midline. Absent: meningismus, lymphadenopathy - Chest Chest inspection: Present: normal inspection, symmetric chest wall rise. Absent: tenderness - Respiratory Respiratory exam: Present: normal lung sounds bilaterally. Absent: respiratory distress - Cardiovascular Cardiovascular exam: Present: regular rate, normal rhythm. Absent: JVD - Abdominal Exam Abdominal exam: Present: soft, tenderness. Absent: distention, guarding Abdominal tenderness: Present: LLQ, suprapubic - Extremities Exam Extremities exam: Present: normal inspection - Back Exam Back exam: Present: normal inspection. Absent: tenderness - Neurological Exam Neurological exam: Present: alert - Psychiatric Psychiatric exam: Present: normal affect, normal mood - Skin Skin exam: Present: warm, dry, intact, normal color - Lymphatic Lymphatic Findings: no adenopathy
[2018-11-20 13:42] LABS: Basophils % 0.4 % (0.1-2.0); Eosinophils # 0.2 K/mm3 (0.0-0.4); Eosinophils % 1.7 % (0.1-12.0); Hematocrit 34.5 % (37.0-47.0); Hemoglobin 11.1 g/dL (12.2-16.2); Lymphocytes # 2.4 K/mm3 (0.7-4.5); Lymphocytes % 25.7 % (10-50); Mean Corpuscular HGB Conc 32.2 g/dL (31.8-35.4); Mean Corpuscular Volume 87.1 fl (81-99); Monocytes # 0.6 K/mm3 (0.1-1.0); Monocytes % 5.9 % (1.7-9.3); Neutrophils # 6.3 K/mm3 (1.8-7.8); Neutrophils % 66.4 % (37.0-80.0); Platelet Count 368 K/mm3 (142-424); Red Blood Count 3.95 M/mm3 (4.20-5.40); Red Cell Distribution Width 15.1 % (11.5-17.5); White Blood Count 9.5 K/mm3 (4.8-10.8)
[2018-11-20 13:51] LABS: Albumin Level 2.9 gm/dL (3.4-5.0); Albumin/Globulin Ratio 0.6 (1.1-1.8); Anion Gap 13.2 mEq/L (5-15); Bilirubin,Total 0.3 mg/dL (0.2-1.0); Calcium 8.9 mg/dL (8.5-10.1); Globulin 4.5 gm/dl (1.3-3.2); Total Protein,Serum 7.4 gm/dL (6.4-8.2)
[2018-11-21 05:41] LABS: Basophils % 0.2 % (0.1-2.0); Eosinophils # 0.2 K/mm3 (0.0-0.4); Hematocrit 32.6 % (37.0-47.0); Hemoglobin 10.3 g/dL (12.2-16.2); Lymphocytes # 1.7 K/mm3 (0.7-4.5); Lymphocytes % 23.7 % (10-50); Mean Corpuscular HGB Conc 31.5 g/dL (31.8-35.4); Mean Corpuscular Volume 86.5 fl (81-99); Mean Platelet Volume 8.1 fl (7.4-10.4); Monocytes # 0.6 K/mm3 (0.1-1.0); Monocytes % 7.8 % (1.7-9.3); Neutrophils # 4.8 K/mm3 (1.8-7.8); Neutrophils % 66.3 % (37.0-80.0); Platelet Count 341 K/mm3 (142-424); Red Blood Count 3.77 M/mm3 (4.20-5.40); White Blood Count 7.2 K/mm3 (4.8-10.8)
[2018-11-21 06:00] LABS: Anion Gap 11.7 mEq/L (5-15); Blood Urea Nitrogen 13 mg/dL (7-18); Calcium 8.6 mg/dL (8.5-10.1); Carbon Dioxide 28 mmol/L (21.0-32.0); Chloride 107 mmol/L (98-107); Glucose 99 mg/dL (74-106); Sodium 142 mmol/L (136-145)
--- NOTE | 2018-11-21 07:34 | Pharmacy Consult Notes ---
[facility] Pharmacy VTE Monitoring - Patient Demographics Admission date: 11/20/18 Report Date: 11/21/18 Time: 07:34 Allergies/Adverse Reactions: Patient Allergies No Known Allergies Allergy (Verified 11/10/18 15:46) Height: 1.57 m Weight: 89.159 kg Patient Problems: Current Active Problems Pelvic abscess in female (Acute) - VTE Risk Labs: VTE Related Lab Results Hgb 10.3 g/dL (12.2-16.2) L 11/21/18 05:30 Hct 32.6 % (37.0-47.0) L 11/21/18 05:30 Plt Count 341 K/mm3 (142-424) 11/21/18 05:30 BUN 13 mg/dL (7-18) D 11/21/18 05:30 Creatinine 1.03 mg/dL (0.55-1.02) H 11/21/18 05:30 Estimated Creat Clear 95 mL/min (50-200) 11/21/18 05:30 VTE Score: 7 VTE Risk Level: Moderate Risk - Prophylaxis VTE Prophylaxis Ordered?: Yes Types of VTE Prophylaxis: TEDS Knee High Location of Applied Device: Bilateral Lower Extremeties - VTE Diagnosis Confirmed Treatment or plan recommended: Continue Current Treatment
--- NOTE | 2018-11-21 08:09 | Consult Report ---
*Admission Date: 11/20/18 *Reason for consult:: Possible diverticulitis *History of present illness: This is a 47-year-old female who presented to the emergency department yesterday with increasing lower abdominal pain (mostly on the right side). She is one- month status post hysterectomy. She had convalesced well prior to this recent episode. Intermittent low-grade fevers noted in emergency department. She has since remained afebrile with stable and normal vital signs. She did have some increasing lower abdominal pain overnight but states "it only happens when I move". A CT scan from the emergency department revealed a fluid collection with differential including postoperative collection (with or without infectious process) and diverticulitis. Review of Systems - Constitutional Denies chills - Eyes Denies change in vision - ENT Denies difficulty swallowing - *Cardiovascular Denies chest pain - *Respiratory Denies cough - *Gastrointestinal Reports abdominal pain, Reports nausea - *Genitourinary Denies difficulty urinating - *Musculoskeletal Denies joint pain - Integumentary/Breasts Denies lesions - *Neurologic Denies abnormal movements - Psychiatric Denies anxiety - Endocrine Denies excessive sweating - Hematologic/Lymphatic Denies easy bleeding - Allergic/Immunologic Denies GI upset with certain foods [facility] History Medical History: Reports:: Anxiety, Cancer, Depression, Hypertension Denies:: Diabetes Mellitus Type 1, Diabetes Mellitus Type 2, Internal Pacemaker, Lung Disease, MRSA, Seizures *Have you ever received a pneumonia vaccine?: Yes *Have you received a flu vaccine this season?: Yes Other Medical History: Denies: Blood Transfusion Reaction Laterality Cases: Left: Breast Biopsy, Mastectomy Other Surgeries: Yes: Cholecystectomy, Hysterectomy-Total, Other. No: Pacemaker Amputation: No Fractures: Yes - *Social History Educational Level: Attended High School Smoking Status: Never smoker Tobacco Type: cigarettes # Packs/Day (cigarettes): 1 Alcohol Intake: never Alcohol Intake Frequency:: other Substance Use Type: denies use *Occupational Status:: unemployed, other Housing: house Household Members: family *Travel in the last 8 weeks: None - Psychiatric History Expresses thoughts of harming self/others: None Suicide Plan Description: No Plan Pschychiatric History:: Reports:: Anxiety, Depression Family Hx:: Cancer, Stroke, Heart Attack, Hypertension Meds Home Medications Medication Instructions Recorded Confirmed Type Lisinopril [Lisinopril 20mg Tab] 20 mg PO DAILY 05/25/18 11/20/18 History diclofenac sodium 50 mg 50 mg PO TIDWM 08/16/18 11/20/18 History tablet,delayed release quetiapine 50 mg tablet 50 mg PO DAILY 08/16/18 11/20/18 History Duloxetine HCl [Cymbalta] 120 mg PO HS 10/25/18 11/20/18 History hydrOXYzine HCl [Hydroxyzine HCl] 25 - 50 mg PO Q8HP PRN 10/25/18 11/20/18 Hist ory ibuprofen 800 mg tablet 800 mg PO BID #60 tab 11/02/18 11/20/18 Rx ondansetron HCl 4 mg tablet 4 mg PO Q6H PRN #30 tab 11/02/18 11/20/18 Rx Allergies Allergy/AdvReac Type Severity Reaction Status Date / Time No Known Allergies Allergy Verified 11/10/18 15:46 Exam Vital signs and Labs for Last 24 Hours: Temp Pulse Resp BP Pulse Ox 98.1 F 108 H 16 132/84 98 11/21/18 04:00 11/21/18 04:00 11/21/18 04:00 11/21/18 04:00 11/21/18 04:00 Laboratory Results - last 24 hr 11/20/18 13:05: WBC 9.5, RBC 3.95 L, Hgb 11.1 L, Hct 34.5 L, MCV 87.1, MCH 28.1, MCHC 32.2, RDW 15.1, Plt Count 368, MPV 8.0, Neut % (Auto) 66.4, Lymph % (Auto) 25.7, [place] % (Auto) 5.9, Eos % (Auto) 1.7, Baso % (Auto) 0.4, Neut # (Auto) 6.3, Lymph # (Auto) 2.4, [place] # (Auto) 0.6, Eos # (Auto) 0.2, Baso # (Auto) 0.0 11/20/18 13:05: Sodium 139, Potassium 4.2, Chloride 105, Carbon Dioxide 25, An ion Gap 13.2, BUN 20 H, Creatinine 1.15 H, Estimated Creat Clear 76, Estimated GFR 51 L, Est GFR ( Amer) 61, Glucose 104, Calcium 8.9, Total Bilirubin 0.3, AST 15, ALT 35, Alkaline Phosphatase 184 H, Total Protein 7.4, Albumin 2.9 L, Globulin 4.5 H, Albumin/Globulin Ratio 0.6 L 11/20/18 13:05: Lipase 289 11/20/18 17:45: Lactate 0.6 11/21/18 05:30: WBC 7.2, RBC 3.77 L, Hgb 10.3 L, Hct 32.6 L, MCV 86.5, MCH 27.2, MCHC 31.5 L, RDW 15.0, Plt Count 341, MPV 8.1, Neut % (Auto) 66.3, Lymph % (Auto) 23.7, [place] % (Auto) 7.8, Eos % (Auto) 2.0, Baso % (Auto) 0.2, Neut # (A uto) 4.8, Lymph # (Auto) 1.7, [place] # (Auto) 0.6, Eos # (Auto) 0.2, Baso # (Auto) 0.0 11/21/18 05:30: Sodium 142, Potassium 4.7, Chloride 107, Carbon Dioxide 28, Anion Gap 11.7, BUN 13 D, Creatinine 1.03 H, Estimated Creat Clear 95, Estimated GFR 57 L, Est GFR ( Amer) 69, Glucose 99, Calcium 8.6, Troponin I < 0.02 I & O for Last 24 hours: Intake & Output 11/18/18 11/19/18 11/20/18 11/21/18 11:59 11:59 11:59 11:59 Intake Total 1304 / 1304 Balance 1304 / 1304 Weight 196 lb 9 oz - Constitutional no acute distress - *Routine Respiratory Exam Absent: respiratory distress - *Routine Cardiovascular Exam Present: tachycardia Comments: (mildly) - *Routine Abdominal Exam Present: soft, tenderness Comments: lower abdominal TTP Results - Labs 11/21/18 05:30 11/21/18 05:30 Laboratory Results - last 24 hr 11/20/18 13:05: WBC 9.5, RBC 3.95 L, Hgb 11.1 L, Hct 34.5 L, MCV 87.1, MCH 28.1, MCHC 32.2, RDW 15.1, Plt Count 368, MPV 8.0, Neut % (Auto) 66.4, Lymph % (Auto) 25.7, [place] % (Auto) 5.9, Eos % (Auto) 1.7, Baso % (Auto) 0.4, Neut # (Auto) 6.3, Lymph # (Auto) 2.4, [place] # (Auto) 0.6, Eos # (Auto) 0.2, Baso # (Auto) 0.0 11/20/18 13:05: Sodium 139, Potassium 4.2, Chloride 105, Carbon Dioxide 25, An ion Gap 13.2, BUN 20 H, Creatinine 1.15 H, Estimated Creat Clear 76, Estimated GFR 51 L, Est GFR ( Amer) 61, Glucose 104, Calcium 8.9, Total Bilirubin 0.3, AST 15, ALT 35, Alkaline Phosphatase 184 H, Total Protein 7.4, Albumin 2.9 L, Globulin 4.5 H, Albumin/Globulin Ratio 0.6 L 11/20/18 13:05: Lipase 289 11/20/18 17:45: Lactate 0.6 11/21/18 05:30: WBC 7.2, RBC 3.77 L, Hgb 10.3 L, Hct 32.6 L, MCV 86.5, MCH 27.2, MCHC 31.5 L, RDW 15.0, Plt Count 341, MPV 8.1, Neut % (Auto) 66.3, Lymph % (Auto) 23.7, [place] % (Auto) 7.8, Eos % (Auto) 2.0, Baso % (Auto) 0.2, Neut # (A uto) 4.8, Lymph # (Auto) 1.7, [place] # (Auto) 0.6, Eos # (Auto) 0.2, Baso # (Auto) 0.0 11/21/18 05:30: Sodium 142, Potassium 4.7, Chloride 107, Carbon Dioxide 28, Anion Gap 11.7, BUN 13 D, Creatinine 1.03 H, Estimated Creat Clear 95, Estimated GFR 57 L, Est GFR ( Amer) 69, Glucose 99, Calcium 8.6, Troponin I < 0.02 Assessment and Plan (1) Abdominal pain Current visit: Yes Status: Acute Category: Medical Code(s): R10.9 - Unspecified abdominal pain (2) Pelvic fluid collection Current visit: Yes Status: Acute Category: Medical Code(s): R18.8 - Other ascites Etiologies include possible postoperative collection (with or without infection) and diverticulitis. Seemingly diverticulitis or an infected collection is less likely and she is afebrile and she has a normal white blood cell count with no left shift. Inflammatory response from a fluid collection (despite seemingly being delayed in this instance) is certainly a possibility. Continue antibiotics for now Toradol added Serial abdominal exams Repeat CT scan in approximately 1 week Consideration of culdocentesis (Dr. Billingsley currently evaluating this possibility) Colonoscopy in the relatively near future as an outpatient
--- NOTE | 2018-11-21 08:23 | Consult Report ---
*Admission Date: 11/20/18 *Reason for consult:: L Ankle ORIF *History of present illness: This is a 47-year-old female who presented to the emergency department yesterday with increasing lower abdominal pain (mostly on the right side). She is one- month status post hysterectomy. She had convalesced well prior to this recent episode. Intermittent low-grade fevers noted in emergency department. She has since remained afebrile with stable and normal vital signs. She did have some increasing lower abdominal pain overnight but states "it only happens when I move". A CT scan from the emergency department revealed a fluid collection with differential including postoperative collection (with or without infectious process) and diverticulitis. I was consulted on this patient for evaluation of left lower extremity. Patient had revisional left ankle surgery 11/02/2018. She was due to have her sutures removed in the office today. Patient denies any pain to the ankle currently. She has been compliant with nonweightbearing. Review of Systems - Review of Systems Review of systems:: pertinent systems reviewed and negative unless documented below - Constitutional Denies chills, Denies fatigue - Eyes Denies blurry vision - ENT Denies abnormal hearing - *Cardiovascular Denies chest pain, Denies shortness of breath - *Respiratory Denies shortness of breath - *Gastrointestinal Reports abdominal pain, Reports cramping - *Genitourinary Denies abnormal periods - *Musculoskeletal Denies limited joint movement - Integumentary/Breasts Reports dry skin - *Neurologic Denies abnormal movements - Psychiatric Denies abnormal sleep pattern [facility] History I have reviewed the patient's past medical history: Yes Medical History: Reports:: Anxiety, Cancer, Depression, Hypertension Denies:: Diabetes Mellitus Type 1, Diabetes Mellitus Type 2, Internal Pacemaker, Lung Disease, MRSA, Seizures *Have you ever received a pneumonia vaccine?: Yes *Have you received a flu vaccine this season?: Yes Other Medical History: Denies: Blood Transfusion Reaction Laterality Cases: Left: Breast Biopsy, Mastectomy Other Surgeries: Yes: Cholecystectomy, Hysterectomy-Total, Other. No: Pacemaker Amputation: No Fractures: Yes - *Social History Educational Level: Attended High School Smoking Status: Never smoker Tobacco Type: cigarettes # Packs/Day (cigarettes): 1 Alcohol Intake: never Alcohol Intake Frequency:: other Substance Use Type: denies use *Occupational Status:: unemployed, other Housing: house Household Members: family *Travel in the last 8 weeks: None - Psychiatric History Expresses thoughts of harming self/others: None Suicide Plan Description: No Plan Pschychiatric History:: Reports:: Anxiety, Depression Family Hx:: Cancer, Stroke, Heart Attack, Hypertension Meds Home Medications Medication Instructions Recorded Confirmed Type Lisinopril [Lisinopril 20mg Tab] 20 mg PO DAILY 05/25/18 11/20/18 History diclofenac sodium 50 mg 50 mg PO TIDWM 08/16/18 11/20/18 History tablet,delayed release quetiapine 50 mg tablet 50 mg PO DAILY 08/16/18 11/20/18 History Duloxetine HCl [Cymbalta] 120 mg PO HS 10/25/18 11/20/18 History hydrOXYzine HCl [Hydroxyzine HCl] 25 - 50 mg PO Q8HP PRN 10/25/18 11/20/18 History ibuprofen 800 mg tablet 800 mg PO BID #60 tab 11/02/18 11/20/18 Rx ondansetron HCl 4 mg tablet 4 mg PO Q6H PRN #30 tab 11/02/18 11/20/18 Rx Allergies Allergy/AdvReac Type Severity Reaction Status Date / Time No Known Allergies Allergy Verified 11/10/18 15:46 Exam Vital signs and Labs for Last 24 Hours: Temp Pulse Resp BP Pulse Ox 98.1 F 108 H 16 132/84 98 11/21/18 04:00 11/21/18 04:00 11/21/18 04:00 11/21/18 04:00 11/21/18 04:00 Laboratory Results - last 24 hr 11/20/18 13:05: WBC 9.5, RBC 3.95 L, Hgb 11.1 L, Hct 34.5 L, MCV 87.1, MCH 28.1, MCHC 32.2, RDW 15.1, Plt Count 368, MPV 8.0, Neut % (Auto) 66.4, Lymph % (Auto) 25.7, [place] % (Auto) 5.9, Eos % (Auto) 1.7, Baso % (Auto) 0.4, Neut # (Auto) 6.3, Lymph # (Auto) 2.4, [place] # (Auto) 0.6, Eos # (Auto) 0.2, Baso # (Auto) 0.0 11/20/18 13:05: Sodium 139, Potassium 4.2, Chloride 105, Carbon Dioxide 25, Anion Gap 13.2, BUN 20 H, Creatinine 1.15 H, Estimated Creat Clear 76, Estimated GFR 51 L, Est GFR ( Amer) 61, Glucose 104, Calcium 8.9, Total Bilirubin 0.3, AST 15, ALT 35, Alkaline Phosphatase 184 H, Total Protein 7.4, Albumin 2.9 L, Globulin 4.5 H, Albumin/Globulin Ratio 0.6 L 11/20/18 13:05: Lipase 289 11/20/18 17:45: Lactate 0.6 11/21/18 05:30: WBC 7.2, RBC 3.77 L, Hgb 10.3 L, Hct 32.6 L, MCV 86.5, MCH 27.2, MCHC 31.5 L, RDW 15.0, Plt Count 341, MPV 8.1, Neut % (Auto) 66.3, Lymph % (Auto) 23.7, [place] % (Auto) 7.8, Eos % (Auto) 2.0, Baso % (Auto) 0.2, Neut # (Auto) 4.8, Lymph # (Auto) 1.7, [place] # (Auto) 0.6, Eos # (Auto) 0.2, Baso # (Auto) 0.0 11/21/18 05:30: Sodium 142, Potassium 4.7, Chloride 107, Carbon Dioxide 28, Anion Gap 11.7, BUN 13 D, Creatinine 1.03 H, Estimated Creat Clear 95, Estimated GFR 57 L, Est GFR ( Amer) 69, Glucose 99, Calcium 8.6, Troponin I < 0.02 I & O for Last 24 hours: Intake & Output 11/18/18 11/19/18 11/20/18 11/21/18 11:59 11:59 11:59 11:59 Intake Total 1304 / 1304 Balance 1304 / 1304 Weight 196 lb 9 oz - Constitutional no acute distress - *Routine HEENT Exam Head: Present: normocephalic - *Routine Neck Exam Present: supple - *Routine Respiratory Exam Present: CTA bilaterally - *Routine Cardiovascular Exam Present: RRR - *Routine Abdominal Exam Present: guarding - *Routine Rectal Exam Patient deferred: visual exam - *Routine Exam Patient deferred: external exam - *Routine Extremities Exam Present: pulses intact, normal capillary refill - *Routine Skin Exam Present: intact - *Routine Neurological Exam Present: alert - Detailed Lower Extremity Exam Comments: Sutures clean dry and intact to medial and lateral ankle. No signs of infection or wound dehiscence noted. Calf nontender bilateral. Light touch sensation intact. Motor function intact. Results - Labs Result Diagrams: 11/21/18 05:30 11/21/18 05:30 Labs: Abnormal lab results 11/20/18 11/20/18 11/21/18 Range/Units 13:05 13:05 05:30 RBC 3.95 L 3.77 L (4.20-5.40) M/mm3 Hgb 11.1 L 10.3 L (12.2-16.2) g/dL Hct 34.5 L 32.6 L (37.0-47.0) % MCHC 31.5 L (31.8-35.4) g/dL BUN 20 H (7-18) mg/dL Creatinine 1.15 H (0.55-1.02) mg/dL Estimated GFR 51 L (>60) ml/min Alkaline Phosphatase 184 H (46-116) U/L Albumin 2.9 L (3.4-5.0) gm/dL Globulin 4.5 H (1.3-3.2) gm/dl Albumin/Globulin Ratio 0.6 L (1.1-1.8) 11/21/18 Range/Units 05:30 RBC (4.20-5.40) M/mm3 Hgb (12.2-16.2) g/dL Hct (37.0-47.0) % MCHC (31.8-35.4) g/dL BUN (7-18) mg/dL Creatinine 1.03 H (0.55-1.02) mg/dL Estimated GFR 57 L (>60) ml/min Alkaline Phosphatase (46-116) U/L Albumin (3.4-5.0) gm/dL Globulin (1.3-3.2) gm/dl Albumin/Globulin Ratio (1.1-1.8) H & H 11/20/18 11/21/18 Range/Units 13:05 05:30 Hgb 11.1 L 10.3 L (12.2-16.2) g/dL Hct 34.5 L 32.6 L (37.0-47.0) % All other labs normal. Assessment and Plan (1) Abdominal pain Current visit: Yes Status: Acute Category: Medical Code(s): R10.9 - Unspecified abdominal pain (2) Pelvic fluid collection Current visit: Yes Status: Acute Category: Medical Code(s): R18.8 - Other ascites - Assessment and plan all Dx Assessment and Plan for all problems:: 11/02/18: s/p Left HWR, revisional ankle ORIF, syndesmosis ORIF, medial malleolus ORIF, revision of non-union, ankle arthroscopy with debridement, ankle synovectomy POV # 2 POD # 2w, 5d Sutures removed from both medial lateral incisions. No signs of infection or wound dehiscence noted. Mastisol and Steri-Strips applied. Dry sterile dressing with posterior splint applied to the LLE. Maintain splint clean dry and intact. Elevate and ice as needed. Plan to obtain new x-rays left ankle today. Continue nonweightbearing. Follow- up outpatient in 3-4 weeks for new x-rays left ankle.
--- NOTE | 2018-11-21 11:30 | Operative Note ---
Date of procedure: 11/21/18 Pre-op Diagnosis:: Pelvic mass Post-op Diagnosis:: 1. Pelvic mass. 2. ??mucocele. Procedure performed:: Culdocentesis with cultures and Gram stain Surgeon:: Roberto Billingsley MD CAP PARTS CUTTER:: Basilio Terrell Anesthesia: GETA Estimated blood loss (mL): 10 Operative findings:: Thick gelatinous material from posterior cul-de-sac mass. Operative note:: After the patient was prepped and draped in usual fashion and general anesthesia was administered, examination under anesthesia revealed an intact vaginal cuff (4 weeks postop total abdominal hysterectomy and bilateral salpingo- oophrectomy). Behind the vaginal cuff was a palpable density. The vaginal chester and vault were prepped with Betadine. Using an 18-gauge spinal needle attached with 20 cc syringe, the mass was entered. There was no liquid return, and with pressure, a small amount of a gelatinous yellow material was retrieved, suggestive of a mucocele. It was cultured aerobically and anaerobically and submitted for Gram stain. This did not significantly reduce the mass, but the thickness of the material precluded it being further aspirated, even after several passes. There was minimal bleeding. The instruments were removed. The sponge and needle counts correct. The estimated blood loss was less than 10 cc. The patient tolerated the procedure well, and was taken to PACU in excellent condition. She remains empirically on antibiotics. Condition: stable Disposition: PACU Specimens:: Cultures and Gram stain Complications:: None
--- NOTE | 2018-11-21 11:36 | Progress Note ---
[facility] Anesthesia Record Part I Intake, IV Amount: 1,200 Estimated blood loss (mL): 0 Urine output (mL): 0 Blood Products used (#): none Blood Pressure: 103/60 SaO2: 94 Pulse Rate: 112 Respiratory Rate: 12 Temperature: 97.2 F Patient is:: Awake, Stable Stable to PACU at:: 11:30
--- NOTE | 2018-11-21 11:36 | Progress Note ---
[facility] Anesthesia Record Part II Discharge Time: 12:00 Destination: floor PACU nurse assessment reviewed?: Yes Patient Condition:: Good Anesthesia Complications:: None Swallowing reflex intact?: Yes Cyanosis?: No
--- NOTE | 2018-11-22 06:47 | Progress Note ---
Internal Medicine - PN: Subj *Date: 11/22/18 *Time: 06:45 Interval history: This is hospital day #3 and postop day #1. The patient remains afebrile. Her vital signs are stable. Her abdomen is soft. She is complaining of much less pain since her culdocentesis. Cultures and cytology are still pending. During the night blood culture reports from the ER came back as a preliminary finding of MRSA, with sensitivities pending. The patient is currently on Unasyn. Impression: Stable, but guarded. Plan is to continue the Unasyn until sensitivities are returned. Exam Vital signs and Labs for Last 24 Hours: Temp Pulse Resp BP Pulse Ox 97.5 F L 60 16 102/58 L 93 L 11/22/18 04:00 11/22/18 04:00 11/22/18 04:00 11/22/18 04:00 11/22/18 04:00 I & O for Last 24 hours: Intake & Output 11/19/18 11/20/18 11/21/18 11/22/18 11:59 11:59 11:59 11:59 Intake Total 2504 / 2504 2493 / 2493 Output Total 150 / 150 Balance 2354 / 2354 2493 / 2493 Weight 196 lb 9 oz 195 lb Microbiology Reports for the Last 24 Hours: Microbiology 11/21/18 11:18 Vaginal - Vaginal Gram Stain - Final 11/20/18 17:45 Blood Blood Culture - Preliminary Assessment and Plan (1) Abdominal pain Current visit: Yes Status: Acute Category: Medical Code(s): R10.9 - Unspecified abdominal pain (2) Pelvic fluid collection Current visit: Yes Status: Acute Category: Medical Code(s): R18.8 - Other ascites
--- NOTE | 2018-11-22 08:30 | Progress Note ---
Subjective Narrative: Feels "somewhat better". Exam Vital signs and Labs for Last 24 Hours: Temp Pulse Resp BP Pulse Ox 98.3 F 107 H 21 109/64 L 95 11/22/18 08:00 11/22/18 08:00 11/22/18 08:00 11/22/18 08:00 11/22/18 08:00 I & O for Last 24 hours: Intake & Output 11/19/18 11/20/18 11/21/18 11/22/18 11:59 11:59 11:59 11:59 Intake Total 2504 / 2504 2733 / 2733 Output Total 150 / 150 Balance 2354 / 2354 2733 / 2733 Weight 196 lb 9 oz 195 lb Microbiology Reports for the Last 24 Hours: Microbiology 11/21/18 11:18 Vaginal - Vaginal Gram Stain - Final 11/20/18 17:45 Blood Blood Culture - Preliminary - *Routine Abdominal Exam Present: soft Progress Note: A&P (1) Abdominal pain Status: Acute Current Visit: Yes (2) Pelvic fluid collection Status: Acute Assessment and plan: Await cytology and final culture results status post culdocentesis. Serial abdominal exams Antibiotics as per primary service Colonoscopy in the relatively near future. She is scheduled for outpatient reevaluation and ongoing discussion. Current Visit: Yes
[2018-11-22 09:36] LABS: Appearance,Urine CLEAR (Clear); Bilirubin,Urine Negative (Negative); Blood, Urine 1+ (Negative); Color,Urine YELLOW (Yellow); Glucose,Urine (UA) Negative (Negative); Ketones,Urine Negative (Negative); Leukocyte Esterase,Urine 1+ (Negative); PH,Urine 6.5 (5.0-8.5); Protein,Urine Negative (Negative); Specific Gravity, Urine <= 1.005 (1.005-1.030); Urobilinogen,Urine 0.2 EU/dl (0.2)
[2018-11-22 09:52] LABS: Bacteria,Urine 1+ /lpf; Squamous Epithelial Cell,Urine Occasional #/hpf (0-5); WBC,Urine 20-50 #/hpf (0-3)
--- NOTE | 2018-11-22 16:11 | Progress Note ---
Internal Medicine - PN: Subj *Date: 11/22/18 *Time: 16:09 Interval history: The patient still has intermittent pain, especially low back pain. There is no vaginal drainage. Repeat blood cultures, path report, and cultures from the culdocentesis are still pending. She is afebrile. Given the report of MRSA from her previous blood cultures, I feel it is important to continue her Unasyn overnight. Possible discharge will be evaluated in the morning, after repeat CBC. Exam Vital signs and Labs for Last 24 Hours: Temp Pulse Resp BP Pulse Ox 98.7 F 103 H 18 126/76 97 11/22/18 11:58 11/22/18 11:58 11/22/18 11:58 11/22/18 11:58 11/22/18 11:58 Laboratory Results - last 24 hr 11/20/18 17:45: Lactate 0.6 11/22/18 09:15: Urine Color Yellow, Urine Appearance Clear, Urine pH 6.5, Ur Specific [place] <= 1.005, Urine Protein Negative, Urine Glucose (UA) Negative, Urine Ketones Negative, Urine Blood 1+, Urine Nitrate Negative, Urine Bilirubin Negative, Urine Urobilinogen 0.2, Ur Leukocyte Esterase 1+ A, Urine RBC 3-5, Urine WBC 20-50, Ur Squamous Epith Cells Occasional, Urine Bacteria 1+ I & O for Last 24 hours: Intake & Output 11/20/18 11/21/18 11/22/18 11/23/18 11:59 11:59 11:59 11:59 Intake Total 2504 / 2504 2733 / 2733 Output Total 150 / 150 Balance 2354 / 2354 2733 / 2733 Weight 196 lb 9 oz 195 lb Microbiology Reports for the Last 24 Hours: Microbiology 11/21/18 11:18 Vaginal - Vaginal Gram Stain - Final 11/21/18 11:18 Vaginal - Vaginal Abscess Culture - Preliminary NO GROWTH AFTER 24 HOURS 11/20/18 17:45 Blood Blood Culture - Preliminary Gram Positive Cocci Assessment and Plan (1) Abdominal pain Current visit: Yes Status: Acute Category: Medical Code(s): R10.9 - Unspecified abdominal pain (2) Pelvic fluid collection Current visit: Yes Status: Acute Category: Medical Code(s): R18.8 - Other ascites
--- NOTE | 2018-11-23 06:30 | Progress Note ---
Subjective Patient reports: other (She states that the pain still "comes and goes") Exam Vital signs and Labs for Last 24 Hours: Temp Pulse Resp BP Pulse Ox 97.9 F 99 H 18 130/74 99 11/23/18 04:00 11/23/18 04:00 11/23/18 04:00 11/23/18 04:25 11/23/18 04:00 Laboratory Results - last 24 hr 11/20/18 17:45: Lactate 0.6 11/22/18 09:15: Urine Color Yellow, Urine Appearance Clear, Urine pH 6.5, Ur Specific [place] <= 1.005, Urine Protein Negative, Urine Glucose (UA) Negative, Urine Ketones Negative, Urine Blood 1+, Urine Nitrate Negative, Urine Bilirubin Negative, Urine Urobilinogen 0.2, Ur Leukocyte Esterase 1+ A, Urine RBC 3-5, Urine WBC 20-50, Ur Squamous Epith Cells Occasional, Urine Bacteria 1+ I & O for Last 24 hours: Intake & Output 11/20/18 11/21/18 11/22/18 11/23/18 11:59 11:59 11:59 11:59 Intake Total 2504 / 2504 2733 / 2733 550 / 550 Output Total 150 / 150 Balance 2354 / 2354 2733 / 2733 550 / 550 Weight 196 lb 9 oz 195 lb 208 lb 2 oz Microbiology Reports for the Last 24 Hours: Microbiology 11/20/18 17:45 Blood Blood Culture - Preliminary NO GROWTH AFTER 48 HOURS 11/21/18 11:18 Vaginal - Vaginal Gram Stain - Final 11/21/18 11:18 Vaginal - Vaginal Abscess Culture - Preliminary NO GROWTH AFTER 24 HOURS 11/20/18 17:45 Blood Blood Culture - Preliminary Gram Positive Cocci - Constitutional no acute distress - *Routine Respiratory Exam Absent: respiratory distress - *Routine Abdominal Exam Present: soft Progress Note: A&P (1) Abdominal pain Status: Acute Current Visit: Yes (2) Pelvic fluid collection Status: Acute Assessment and plan: Ongoing management as per primary service Colonoscopy in the relatively near future (preferably after completion of current therapy) Current Visit: Yes
[2018-11-23 07:44] LABS: Basophils % 0.3 % (0.1-2.0); Eosinophils % 0.2 % (0.1-12.0); Hematocrit 29.1 % (37.0-47.0); Hemoglobin 9.1 g/dL (12.2-16.2); Lymphocytes # 2.3 K/mm3 (0.7-4.5); Lymphocytes % 22.2 % (10-50); Mean Corpuscular HGB Conc 31.2 g/dL (31.8-35.4); Mean Corpuscular Volume 87.8 fl (81-99); Mean Platelet Volume 8.1 fl (7.4-10.4); Monocytes # 0.5 K/mm3 (0.1-1.0); Monocytes % 5.1 % (1.7-9.3); Neutrophils # 7.4 K/mm3 (1.8-7.8); Neutrophils % 72.1 % (37.0-80.0); Platelet Count 363 K/mm3 (142-424); Red Blood Count 3.32 M/mm3 (4.20-5.40); Red Cell Distribution Width 15.3 % (11.5-17.5); White Blood Count 10.3 K/mm3 (4.8-10.8)
--- NOTE | 2018-11-23 08:48 | Progress Note ---
Internal Medicine - PN: Subj *Date: 11/23/18 *Time: 08:47 Interval history: Although the patient remains afebrile, her hemoglobin is dropped to 9.1 g and she had a difficult night with increased pain especially low back pain. She is unable to walk because of her recent left ankle surgery. The pathology report and culture reports are still pending. Because of her increased pain, I am going to order follow-up imaging of her pelvis. Exam Vital signs and Labs for Last 24 Hours: Temp Pulse Resp BP Pulse Ox 97.9 F 101 H 18 131/81 97 11/23/18 08:00 11/23/18 08:00 11/23/18 08:00 11/23/18 08:00 11/23/18 08:00 Laboratory Results - last 24 hr 11/20/18 17:45: Lactate 0.6 11/22/18 09:15: Urine Color Yellow, Urine Appearance Clear, Urine pH 6.5, Ur Specific [place] <= 1.005, Urine Protein Negative, Urine Glucose (UA) Negative, Urine Ketones Negative, Urine Blood 1+, Urine Nitrate Negative, Urine Bilirubin Negative, Urine Urobilinogen 0.2, Ur Leukocyte Esterase 1+ A, Urine RBC 3-5, Urine WBC 20-50, Ur Squamous Epith Cells Occasional, Urine Bacteria 1+ 11/23/18 07:04: WBC 10.3 D, RBC 3.32 L, Hgb 9.1 L, Hct 29.1 L, MCV 87.8, MCH 27.4, MCHC 31.2 L, RDW 15.3, Plt Count 363, MPV 8.1, Neut % (Auto) 72.1, Lymph % (Auto) 22.2, [place] % (Auto) 5.1, Eos % (Auto) 0.2, Baso % (Auto) 0.3, Neut # (Auto) 7.4, Lymph # (Auto) 2.3, [place] # (Auto) 0.5, Eos # (Auto) 0.0, Baso # (Auto) 0.0 I & O for Last 24 hours: Intake & Output 11/20/18 11/21/18 11/22/18 11/23/18 11:59 11:59 11:59 11:59 Intake Total 2504 / 2504 2733 / 2733 3764 / 3764 Output Total 150 / 150 Balance 2354 / 2354 2733 / 2733 3764 / 3764 Weight 196 lb 9 oz 195 lb 208 lb 2 oz Microbiology Reports for the Last 24 Hours: Microbiology 11/20/18 17:45 Blood Blood Culture - Preliminary Staphylococcus hominis 11/20/18 17:45 Blood Blood Culture - Preliminary NO GROWTH AFTER 48 HOURS 11/21/18 11:18 Vaginal - Vaginal Gram Stain - Final 11/21/18 11:18 Vaginal - Vaginal Abscess Culture - Preliminary NO GROWTH AFTER 24 HOURS Assessment and Plan (1) Abdominal pain Current visit: Yes Status: Acute Category: Medical Code(s): R10.9 - Unspecified abdominal pain (2) Pelvic fluid collection Current visit: Yes Status: Acute Category: Medical Code(s): R18.8 - Other ascites
--- NOTE | 2018-11-24 06:54 | Progress Note ---
Internal Medicine - PN: Subj *Date: 11/24/18 *Time: 06:50 Interval history: The patient remains afebrile. This morning, she states that she had a better night, although she feels "" swollen. Her abdomen is soft. Blood cultures and pathology reports are still pending. Yesterday the patient had a "anxiety attack" with chest tightness. Her chest x-ray was normal. Her lungs are clear this morning. Ultrasound yesterday revealed the pelvic "mass"to be unchanged. Disposition we will await results of cultures and pathology today. Exam Vital signs and Labs for Last 24 Hours: Temp Pulse Resp BP Pulse Ox 98.0 F 67 16 131/71 97 11/24/18 04:00 11/24/18 04:00 11/24/18 04:00 11/24/18 04:00 11/24/18 04:00 Laboratory Results - last 24 hr 11/23/18 07:04: WBC 10.3 D, RBC 3.32 L, Hgb 9.1 L, Hct 29.1 L, MCV 87.8, MCH 27.4, MCHC 31.2 L, RDW 15.3, Plt Count 363, MPV 8.1, Neut % (Auto) 72.1, Lymph % (Auto) 22.2, [place] % (Auto) 5.1, Eos % (Auto) 0.2, Baso % (Auto) 0.3, Neut # (Auto) 7.4, Lymph # (Auto) 2.3, [place] # (Auto) 0.5, Eos # (Auto) 0.0, Baso # (Auto) 0.0 I & O for Last 24 hours: Intake & Output 11/21/18 11/22/18 11/23/18 11/24/18 11:59 11:59 11:59 11:59 Intake Total 2504 / 2504 2733 / 2733 3764 / 3764 3494 / 3494 Output Total 150 / 150 Balance 2354 / 2354 2733 / 2733 3764 / 3764 3494 / 3494 Weight 196 lb 9 oz 195 lb 208 lb 2 oz 210 lb Microbiology Reports for the Last 24 Hours: Microbiology 11/21/18 11:18 Vaginal - Vaginal Gram Stain - Final 11/21/18 11:18 Vaginal - Vaginal Abscess Culture - Preliminary NO GROWTH AFTER 48 HOURS 11/22/18 09:15 Urine,Clean Catch Urine Culture - Preliminary NO GROWTH AFTER 24 HOURS 11/20/18 17:45 Blood Blood Culture - Preliminary Staphylococcus hominis Assessment and Plan (1) Abdominal pain Current visit: Yes Status: Acute Category: Medical Code(s): R10.9 - Unspecified abdominal pain (2) Pelvic fluid collection Current visit: Yes Status: Acute Category: Medical Code(s): R18.8 - Other ascites
--- NOTE | 2018-11-24 08:31 | Progress Note ---
Subjective Patient reports: no new complaints Narrative: Still with some discomfort in the right pelvic area. Exam Vital signs and Labs for Last 24 Hours: Temp Pulse Resp BP Pulse Ox 97.9 F 101 H 18 127/88 98 11/24/18 08:00 11/24/18 08:00 11/24/18 08:00 11/24/18 08:00 11/24/18 08:00 I & O for Last 24 hours: Intake & Output 11/21/18 11/22/18 11/23/18 11/24/18 11:59 11:59 11:59 11:59 Intake Total 2504 / 2504 2733 / 2733 3764 / 3764 3494 / 3494 Output Total 150 / 150 Balance 2354 / 2354 2733 / 2733 3764 / 3764 3494 / 3494 Weight 196 lb 9 oz 195 lb 208 lb 2 oz 210 lb Microbiology Reports for the Last 24 Hours: Microbiology 11/21/18 11:18 Vaginal - Vaginal Gram Stain - Final 11/21/18 11:18 Vaginal - Vaginal Abscess Culture - Preliminary NO GROWTH AFTER 48 HOURS 11/22/18 09:15 Urine,Clean Catch Urine Culture - Preliminary NO GROWTH AFTER 24 HOURS 11/20/18 17:45 Blood Blood Culture - Preliminary Staphylococcus hominis - *Routine Abdominal Exam Present: soft Progress Note: A&P (1) Abdominal pain Status: Acute Current Visit: Yes (2) Pelvic fluid collection Status: Acute Current Visit: Yes Assessment and Plan for All Diagnoses:: Ongoing management as per primary service
--- NOTE | 2018-11-24 11:10 | History & Physical Report ---
*Admission Date: 11/20/18 *Chief complaint: pelvic/abdominal pain *History of present illness: This 47-year-old white female who has a history of recent mastectomy for breast cancer and subsequent chemotherapy, and who had been admitted previously for anemia and transfused, then underwent a total abdominal hysterectomy and bilateral salpingo-oophorectomy on 10/24/2018, without complications. Pathology indicated leiomyomata and adenomyosis (benign). She was discharged on 10/27/2018, having done well. She did not receive postop hormonal replacement therapy because of her breast cancer. She was seen postoperatively in my office on 11/08/2018, at which time she was doing well. Her wound was healing well, and her abdomen was soft. She was afebrile. On 11/10/2018 she underwent an ankle surgery per Dr. Nita Flores, which went well. She came to the emergency room on 11/20/2018 with a 2-day history of increasing lower abdominal pain. She stated that the pain was worse when she stood up. She claims no fever at home, but had an initial 100.1 oral temperature in the emergency room. CBC and Chem-7 were essentially normal. Her hemoglobin was 11.1 g hematocrit 34.5%. Repeat oral temperature in the emergency room was 98.1, and she has remained afebrile since. She states that she has had normal bowel movements. A CT scan done in the emergency room revealed a 4.5 x 3.3 x 3.0cm fluid collection in the pelvis, with rectosigmoid thickening. The radiologist suggested a possible pelvic absc ess or a diverticular abscess. I was called in to see the patient, who was relatively comfortable. Her abdomen was soft, but tender to deep palpation suprapubically. Pelvic examination revealed an intact vaginal cuff, but a tender fullness behind the cuff. I admitted the patient for empiric antibiotics (Unasyn), and have consulted general surgery (Dr. Garcia) for a second opinion in the morning. I have also notified Dr. Flores because the patient had an appointment with her tomorrow morning. In addition, I have informed Dr. Weathers (her PCP) of her admission. [facility] History Medical History: Reports:: Anxiety, Cancer, Depression, Hypertension Denies:: Diabetes Mellitus Type 1, Diabetes Mellitus Type 2, Internal Pacemaker, Lung Disease, MRSA, Seizures *Have you ever received a pneumonia vaccine?: Yes *Have you received a flu vaccine this season?: Yes Other Medical History: Denies: Blood Transfusion Reaction Laterality Cases: Left: Breast Biopsy, Mastectomy Other Surgeries: Yes: Cholecystectomy, Hysterectomy-Total, Other. No: Pacemaker Amputation: No Fractures: Yes - *Social History Educational Level: Attended High School Smoking Status: Never smoker Tobacco Type: cigarettes # Packs/Day (cigarettes): 1 Alcohol Intake: never Alcohol Intake Frequency:: other Substance Use Type: denies use *Occupational Status:: unemployed, other Housing: house Household Members: family *Travel in the last 8 weeks: None - Psychiatric History Expresses thoughts of harming self/others: None Suicide Plan Description: No Plan Pschychiatric History:: Reports:: Anxiety, Depression Family Hx:: Cancer, Stroke, Heart Attack, Hypertension Review of Systems - *Gastrointestinal Reports abdominal pain - *Genitourinary Reports pelvic pain - *Neurologic Denies abnormal hearing, Denies abnormal movements Meds Home Medications Medication Instructions Recorded Confirmed Type Lisinopril [Lisinopril 20mg Tab] 20 mg PO DAILY 05/25/18 11/20/18 History diclofenac sodium 50 mg 50 mg PO TIDWM 08/16/18 11/20/18 History tablet,delayed release quetiapine 50 mg tablet 50 mg PO DAILY 08/16/18 11/20/18 History Duloxetine HCl [Cymbalta] 120 mg PO HS 10/25/18 11/20/18 History hydrOXYzine HCl [Hydroxyzine HCl] 25 - 50 mg PO Q8HP PRN 10/25/18 11/20/18 History ibuprofen 800 mg tablet 800 mg PO BID #60 tab 11/02/18 11/20/18 Rx ondansetron HCl 4 mg tablet 4 mg PO Q6H PRN #30 tab 11/02/18 11/20/18 Rx Allergies Allergy/AdvReac Type Severity Reaction Status Date / Time No Known Allergies Allergy Verified 11/10/18 15:46 Exam Vital signs and Labs for Last 24 Hours: Temp Pulse Resp BP Pulse Ox 97.9 F 101 H 18 127/88 98 11/24/18 08:00 11/24/18 08:00 11/24/18 08:00 11/24/18 08:00 11/24/18 08:00 I & O for Last 24 hours: Intake & Output 11/21/18 11/22/18 11/23/18 11/24/18 11:59 11:59 11:59 11:59 Intake Total 2504 / 2504 2733 / 2733 3764 / 3764 3494 / 3494 Output Total 150 / 150 Balance 2354 / 2354 2733 / 2733 3764 / 3764 3494 / 3494 Weight 196 lb 9 oz 195 lb 208 lb 2 oz 210 lb Microbiology Reports for the Last 24 Hours: Microbiology 11/22/18 10:12 Blood Blood Culture - Preliminary NO GROWTH AFTER 48 HOURS 11/22/18 09:15 Urine,Clean Catch Urine Culture - Final NO GROWTH AFTER 48 HOURS 11/21/18 11:18 Vaginal - Vaginal Gram Stain - Final 11/21/18 11:18 Vaginal - Vaginal Abscess Culture - Preliminary NO GROWTH AFTER 48 HOURS H&P: Result - Impressions - Impressions 1. Abdominal pain. 2. Pelvic fluid collection. 3. Abscess seems unlikely in the face of a normal white count and minimal to no fever. The timeline (4 weeks postop KARINA/BSO) is inconsistent with an abscess. I will reviewed the films with radiology but also have asked Dr. Garcia (general surgeon) to consult rate the possibility of diverticular disease. Other possibilities include a seroma or a peritoneal wall cyst. Appendiceal abscess is unlikely as the appendix appeared normal on CT scan. I have discussed with the patient the possibility of a transvaginal needle aspiration. Assessment and Plan (1) Abdominal pain Current visit: Yes Status: Acute Category: Medical Code(s): R10.9 - Unspecified abdominal pain (2) Pelvic fluid collection Current visit: Yes Status: Acute Category: Medical Code(s): R18.8 - Other ascites
--- NOTE | 2018-11-24 11:43 | Discharge Summary ---
General - General Admission date:: 11/20/18 Discharge date: 11/24/18 (This 47-year-old white female was admitted 4 weeks postop total abdominal hysterectomy and bilateral salpingo-oophorectomy for benign indications (dysfunctional uterine bleeding and adenomyosis/leiomyomata uteri, after transfusion for severe acute blood loss --surgery was on 10/24/2018). After that surgery she was discharged on postop day #3, doing well. She did not receive postop HRT because of a history of breast cancer, for which she was undergoing chemotherapy. She was seen in my office on 11/08/2018, at which time she was doing well. In the interim, she has had a left ankle surgery per Dr. Nita Flores, which went well. She experienced the acute onset of lower abdominal pain on 11/19/2018, which worsened to the point where she came to the emergency room the following day and was subsequently admitted. She had an initial oral temperature of 100.1 in the emergency room, but a subsequent one a couple of hours later was 98.1. Her CBC and chemistries were normal, with a normal white count. She was experiencing no vaginal bleeding. A CT scan done in the emergency room revealed a roughly 5 cm "fluid collection" in the pelvis. She was admitted and started empirically on intravenous Unasyn, and remained afebrile throughout her hospitalization. Likewise her white count remained normal. She is mildly anemic with a hemoglobin of 9.1 g, but she is clinically stable. Blood cultures done in the emergency room revealed MRSA, but she was covered with her antibiotics. I asked for a consultation with Dr. Garcia (general surgeon) because of the possibility of a diverticular abscess. He did not feel that was the case, nor did I feel that a pelvic abscess was likely, given the length of time since surgery and the normalcy of her CBCs, besides which she remained completely afebrile. After the first night, her pain increased, and I took her to the operating room where I did a culdocentesis, at which I expected to find either an abscess or a hematoma. In fact, neither was the case, and a small amount of thick gelatinous tissue was retrieved, which was sent for cytology. Cultures at that time subsequently came back negative, and while pathology/cytology report was pending, the patient had a somewhat wanda course with intermittent pain, but still no fever. She remained on Unasyn empirically during that time. On one occasion she complained of some tightening in her chest, but her chest x-ray was normal and is felt that that was mostly in anxiety reaction. It has not recurred. As mentioned, subsequent blood cultures were negative and a vaginal ultrasound revealed no change in the "mass." Today I spoke with the pathologist who is convinced that the "mass" is in fact residual Gelfoam, which was placed against the posterior vaginal cuff at the time of surgery to obviate oozing. Generally Gelfoam was expected to absorb within a couple of weeks, but apparently it can remain unabsorbed for up to 4 to 6 weeks. It is likely that the patient's compromised immune system has contr ibuted to the lack of absorption, and to the subsequent surrounding inflammation (not infection). Today, she is feeling much better. She is eating and ambulating and has had a bowel movement. She has had a shower without difficulty. She has been seen by during her hospitalization and has had the sutures removed from her ankle surgery. The plan is to discharge her home to rest, on Tylenol and Motrin, and to repeat a transvaginal ultrasound in 2 weeks. She is given appropriate instructions as to diet and exercise, and she is to return to my office in 1 week for follow-up. She is informed to call if she has increased pain or fever, or any vaginal bleeding.) HPI HPI: This 47-year-old white female who has a history of recent mastectomy for breast cancer and subsequent chemotherapy, and who had been admitted previously for anemia and transfused, then underwent a total abdominal hysterectomy and bilateral salpingo-oophorectomy on 10/24/2018, without complications. Pathology indicated leiomyomata and adenomyosis (benign). She was discharged on 10/27/2018, having done well. She did not receive postop hormonal replacement therapy because of her breast cancer. She was seen postoperatively in my office on 11/08/2018, at which time she was doing well. Her wound was healing well, and her abdomen was soft. She was afebrile. On 11/10/2018 she underwent an ankle surgery per Dr. Nita Flores, which went well. She came to the emergency room on 11/20/2018 with a 2-day history of increasing lower abdominal pain. She stated that the pain was worse when she stood up. She claims no fever at home, but had an initial 100.1 oral temperature in the emergency room. CBC and Chem-7 were essentially normal. Her hemoglobin was 11.1 g hematocrit 34.5%. Repeat oral temperature in the emergency room was 98.1, and she has remained afebrile since. She states that she has had normal bowel movements. A CT scan done in the emergency room revealed a 4.5 x 3.3 x 3.0cm fluid collection in the pelvis, with rectosigmoid thickening. The radiologist suggested a possible pelvic abscess or a diverticular abscess. I was called in to see the patient, who was relatively comfortable. Her abdomen was soft, but tender to deep palpation suprapubically. Pelvic examination revealed an intact vaginal cuff, but a tender fullness behind the cuff. I admitted the patient for empiric antibiotics (Unasyn), and have consulted general surgery (Dr. Garcia) for a second opinion in the morning. I have also notified Dr. Flores because the patient had an appointment with her tomorrow morning. In addition, I have informed Dr. Weathers (her PCP) of her admission. Objective Vital signs: Temp Pulse Resp BP Pulse Ox 97.9 F 101 H 18 127/88 98 11/24/18 08:00 11/24/18 08:00 11/24/18 08:00 11/24/18 08:00 11/24/18 08:00 Results Labs on day of discharge: Preliminary micro results at discharge 11/22/18 10:12 Blood Culture - Preliminary Blood NO GROWTH AFTER 48 HOURS 11/21/18 11:18 Abscess Culture - Preliminary Vaginal - Vaginal NO GROWTH AFTER 48 HOURS 11/20/18 17:45 Blood Culture - Preliminary Blood Staphylococcus hominis 11/20/18 17:45 Blood Culture - Preliminary Blood NO GROWTH AFTER 48 HOURS DS: Diagnosis - Discharge Diagnosis (1) Abdominal pain Status: Acute (2) Pelvic fluid collection Status: Acute Discharge Plan - Patient Discharge Instructions Patient Instructions: DI for Abdominal Pain-Adult, DI for Surgical Site Infection, DI for Multiple Drug-resistant Organism (MDRO) Infection, DI for Aspiration of Pelvic Abscess - Follow up Plan Follow up with: Burt Garcia MD [Staff Physician] - 1 month Home Medications: Home Medications Medication Instructions Recorded Confirmed Type Lisinopril [Lisinopril 20mg Tab] 20 mg PO DAILY 05/25/18 11/20/18 History diclofenac sodium 50 mg 50 mg PO TIDWM 08/16/18 11/20/18 History tablet,delayed release quetiapine 50 mg tablet 50 mg PO DAILY 08/16/18 11/20/18 History Duloxetine HCl [Cymbalta] 120 mg PO HS 10/25/18 11/20/18 History hydrOXYzine HCl [Hydroxyzine HCl] 25 - 50 mg PO Q8HP PRN 10/25/18 11/20/18 History ibuprofen 800 mg tablet 800 mg PO BID #60 tab 11/02/18 11/20/18 Rx ondansetron HCl 4 mg tablet 4 mg PO Q6H PRN #30 tab 11/02/18 11/20/18 Rx Prescriptions/Medication Reconciliation: No Action ondansetron HCl 4 mg tablet 4 mg PO Q6H PRN #30 tab PRN Reason: nausea ibuprofen 800 mg tablet 800 mg PO BID #60 tab quetiapine 50 mg tablet 50 mg PO DAILY diclofenac sodium 50 mg tablet,delayed release 50 mg PO TIDWM Lisinopril [Lisinopril 20mg Tab] 20 mg PO DAILY hydrOXYzine HCl [Hydroxyzine HCl] 25 - 50 mg PO Q8HP PRN PRN Reason: Anxiety Duloxetine HCl [Cymbalta] 120 mg PO HS - Problem Reconciliation Problems Reviewed?: Yes
== END 2018-11-24 13:40 | disposition home or self-care (01) | DRG 392 ==
LOC: 2ND 12:34 → ER 12:34 → OBSVTOIN 17:20 → 2ND 18:38
PROVIDERS: ADMIT Obstetrics & Gynecology; ATTEND Obstetrics & Gynecology
CPT/HCPCS: 36415; 71020; 71046; 73610; 74177; 76830; 80048; 80053; 81001; 83605; 83690; 84484; 85025; 87040; 87070; 87075; 87077; 87086; 87186; 87205; 88112; 88305; 93005; 96365; 96375; 96376; 99284; J2405; Q9967

== ENCOUNTER → 2018-12-13 13:56 | Outpatient (CLI) | payer MEDICAID, SELFPAY ==
--- NOTE | 2018-12-13 14:01 | XR_ITS ---
PROCEDURE: XR ANKLE WT BEARING LT MIN 3V CLINICAL INDICATION: post-op Follow-up surgery COMPARISON: from 11/02/2018 from 11/21/2018 FINDINGS: Posterior splint has been removed. No change in the bone plate at the distal tibia and fibula. There is mild widening of the ankle mortise and mild lateral displacement of the talus. Lucency is noted over the talar dome medially and could be due to an area avascular necrosis. There are some hypertrophic changes at the medial aspect of the talus. There is a mildly prominent zone of lucency along the inferior screw at the medial aspect of the tibia and at the distal screw of the lateral plate at the distal fibula. Continued follow-up suggested to exclude loosening. IMPRESSION: Status post ORIF with mild widening of the ankle mortise and mild prominent zone of lucency at the distal aspect of the tibial and fibular bone plate. Dictated by: Uche Dias MD 12/13/2018 17:12 Signed by: <Electronically signed by Uche Dias MD in [place]> 12/13/2018 17:12
== END ==
PROVIDERS: PCP Nurse Practitioner Family; Visit Provider Podiatrist
DX: Z98.890 Other specified postprocedural states (principal)
CPT/HCPCS: 73610

== ENCOUNTER → 2019-01-03 14:24 | Outpatient (CLI) | payer MEDICAID, SELFPAY ==
--- NOTE | 2019-01-03 14:29 | XR_ITS ---
PROCEDURE: XR ANKLE WT BEARING LT MIN 3V CLINICAL INDICATION: post-op Follow-up surgery COMPARISON: ANKCMLT XR ankle LT min 3V from 03/28/2018 [id number] XR ankle wt bearing LT min 3V from 08/16/2018 XR ANKLE WT BEARING LT MIN 3V from 12/13/2018 FINDINGS: No change status post lateral bone plate over the fibula and medial bone plate over the tibia with translucent fixators between the distal tibia and fibula. Ankle mortise appears slightly widened as before. Transverse medial malleolar fracture is unchanged with no callus formation apparent. IMPRESSION: No change in the bony alignment with postsurgical changes of the distal tib fib as described above Dictated by: Uche Dias MD 01/03/2019 15:01 Electronically signed by Uche Dias MD in [place] 01/03/2019 15:01
--- NOTE | 2019-01-03 14:29 | XR_ITS ---
PROCEDURE: XR FOOT WT BEARING LT 3V CLINICAL INDICATION: post op Follow-up fracture/ORIF COMPARISON: [id number] XR foot RT min 3V from 05/25/2018 XR ANKLE WT BEARING LT MIN 3V from 12/13/2018 FINDINGS: Status post distal tib fib surgery as described on the ankle report. The foot has an unremarkable appearance. No fracture or dislocation. No lytic or blastic change of the foot IMPRESSION: Status post distal tib fib surgery. Unremarkable foot Dictated by: Uche Dias MD 01/03/2019 15:35 Electronically signed by Uche Dias MD in [place] 01/03/2019 15:35
== END ==
PROVIDERS: PCP Family Medicine; Visit Provider Podiatrist
DX: S82.55XG Nondisplaced fracture of medial malleolus of left tibia, subsequent encounter for closed fracture with delayed healing (principal); Z98.890 Other specified postprocedural states
CPT/HCPCS: 73610; 73630

== ENCOUNTER → 2019-01-09 08:30 | Outpatient (CLI) | payer MEDICAID, SELFPAY ==
--- NOTE | 2019-01-09 08:38 | MM_ITS ---
PROCEDURE: MM DIG SC MAMM UNILAT RT CAD Patient Age:48Y CLINICAL INDICATION: SCREENING Left mastectomy 2017, chemotherapy, no lymph node dissection Family history: Maternal aunt age 50 COMPARISON: MAMMO - DIGITAL AMY SCREEN RT from 02/17/2018---outside studies from [place] have finally arrived.. TECHNIQUE: Standard CC and MLO images right breast only were obtained. R2 CAD reviewed. Additional axillary cc view. Also additional nipple profile CC and MLO view right breast t FINDINGS: Minimal residual fibroglandular elements both breast . No significant new areas of significant concern No suspicious findings. Right breast:. Stable. Follow-up 1 year recommended . Stable small snodular densities right breast compatible with stable benign intramammary nodes Note both nodules demonstrate central umbilication nodes reflecting intramammary node pattern. 1 located upper outer quadrant as well as another at the central breast slightly inferior to mid portion right breast IMPRESSION: Stable right mammogram . No no new areas of significant concern on right. . Follow-up right mammogram 1 year recommended BI-RAD Category: 2 Benign Finding(s) FOLLOW-UP: 1YR 1 Year Follow-up (A letter has been sent to the patient regarding results of the study.) The Dictated by: Matty Orellana MD 01/23/2019 14:06 Electronically signed by Matty Orellana MD in [place] 01/23/2019 14:06
== END ==
PROVIDERS: PCP Family Medicine; Visit Provider Internal Medicine Medical Oncology
DX: Z12.31 Encounter for screening mammogram for malignant neoplasm of breast (principal)
CPT/HCPCS: 77067

== ENCOUNTER → 2019-01-30 16:00 | Outpatient (CLI) | payer OTHER, SELFPAY ==
--- NOTE | 2019-01-30 16:13 | XR_ITS ---
PROCEDURE: XR ANKLE WT BEARING LT MIN 3V CLINICAL INDICATION: fracture follow up, post op Follow-up fracture COMPARISON: ANKCMLT XR ankle LT min 3V from 03/28/2018 [id number] XR ankle wt bearing LT min 3V from 08/16/2018 XR ANKLE WT BEARING LT MIN 3V from 12/13/2018 XR ANKLE WT BEARING LT MIN 3V from 01/03/2019 XR FOOT WT BEARING LT 3V from 01/03/2019 XR FOOT WT BEARING LT 3V from 01/30/2019 FINDINGS: No change in the bony hardware as previously described. There is an ununited fracture at the base of the medial malleolus. There is mild widening of the ankle mortise with minimal lateral subluxation of the talus. Bone plate at the distal fibula with transparent fixators to the distal tibia once again noted. There is healing fracture of the distal fibula and osteoarthritic changes of the ankle joint. There are mild osteoarthritic changes of the 1st MTP joint. On the lateral view there is a lucency through the proximal 1/3 of the 5th metatarsal. This may be due to artifact not readily apparent on the additional views. Nondisplaced fracture is not excluded. IMPRESSION: Overall no change status post ORIF distal tib fib with ununited medial malleolar fracture and mild widening of the ankle mortise Faint lucency through the proximal shaft of the 5th metatarsal nonspecific. Cannot exclude a nondisplaced fracture versus overlying artifact Dictated by: Uche Dias MD 01/30/2019 16:43 Electronically signed by Uche Dias MD in [place] 01/30/2019 16:43
== END ==
PROVIDERS: Visit Provider Podiatrist
DX: S82.55XK Nondisplaced fracture of medial malleolus of left tibia, subsequent encounter for closed fracture with nonunion (principal); Z98.890 Other specified postprocedural states
CPT/HCPCS: 73610; 73630

== ENCOUNTER → 2019-02-03 10:18 | Outpatient (CLI) | payer OTHER, SELFPAY ==
--- NOTE | 2019-02-03 10:22 | XR_ITS ---
PROCEDURE: XR LUMBAR SPINE MIN 4V CLINICAL INDICATION: MUSCLE SPASM,LOW BACK PAIN COMPARISON: No exams were available for comparison FINDINGS: There is normal curvature and alignment. All lumbar vertebrae appear intact and disc spaces are well maintained throughout. There is no pars defect. There is minor sclerosis of the inferior left SI joint, the right SI joint is normal. There are hypertrophic facet changes at the L4-5 and L5-S1 levels. IMPRESSION: Hypertrophic facet changes lower lumbar spine and mild left-sided sacroiliitis Dictated by: Dr. Chapito Pat MD 02/03/2019 10:[address] Chapito Pat MD in [place] 02/03/2019 10:54
== END ==
PROVIDERS: PCP Nurse Practitioner Family; Visit Provider Nurse Practitioner Family
DX: M54.5 Low back pain (principal); M62.830 Muscle spasm of back
CPT/HCPCS: 72110

== ENCOUNTER → 2019-02-27 09:45 | Outpatient (CLI) | payer OTHER, SELFPAY ==
--- NOTE | 2019-02-27 09:49 | XR_ITS ---
PROCEDURE: XR ANKLE WT BEARING LT MIN 3V CLINICAL INDICATION: post-op Follow-up ORIF COMPARISON: XR ANKLE WT BEARING LT MIN 3V from 01/30/2019 FINDINGS: The study is obtained through a cast. Status post ORIF distal tibia and fibula with bony hardware in place as previously described not significantly changed. There is good alignment of the distal tibia and fibula. The transverse fracture at the base of the medial malleolus is once again noted somewhat less apparent. The ankle mortise does appear slightly widened. IMPRESSION: Overall no change status post ORIF distal tib fib with mild widening of the ankle mortise and healing distal tibial fracture Dictated by: Uche Dias MD 02/27/2019 11:59 Electronically signed by Uche Dias MD in [place] 02/27/2019 11:59
== END ==
PROVIDERS: PCP Family Medicine; Visit Provider Podiatrist
DX: S93.432D Sprain of tibiofibular ligament of left ankle, subsequent encounter (principal); Z98.890 Other specified postprocedural states
CPT/HCPCS: 73610

== ENCOUNTER → 2019-04-25 14:06 | Outpatient (CLI) | payer OTHER, SELFPAY ==
--- NOTE | 2019-04-25 14:10 | MR_ITS ---
PROCEDURE: MR LUMBAR SPINE WO CON CLINICAL INDICATION: ACUTE RT SIDED LOW BACK PAIN Acute right-sided low back pain with bilateral leg numbness COMPARISON: XR LUMBAR SPINE MIN 4V from 02/03/2019 TECHNIQUE: Standard multiplanar multiecho sequences are performed without contrast. 3-D MIP and myelographic images are also rendered and reviewed FINDINGS: There is normal alignment. The spinal cord ends at the L1 level. There is a small broad-based right paracentral disc protrusion at T11-T12. Although this does not directly impinge upon the spinal cord there is contour deformity along the anterior aspect of the cord on the right at this level. Spinal cord ends at the L1 level. T12-L1: Degenerate disc disease with minimal bulging disc and mild facet hypertrophic change. L1-L2: Minimal bulging disc. L2-L3: Unremarkable. L3-L4: There is a small left-sided foraminal disc protrusion resulting in moderate left-sided foraminal narrowing. Facet and ligamentum hypertrophy is noted with moderate left lateral recess narrowing. Borderline narrowing of the canal. L4-5: Concentric bulging disc slightly eccentric toward the left with canal stenosis along with facet ligamentum hypertrophy with bilateral lateral recess and foraminal narrowing left greater than right. L5-S1: Facet ligamentum hypertrophy with mild bilateral foraminal narrowing. No fracture or dislocation. IMPRESSION: 1. There is a small broad-based right paracentral disc protrusion at T11-T12. Although this does not directly impinge upon the spinal cord there is contour deformity along the anterior aspect of the cord on the right at this level. Spinal cord ends at the L1 level. 2. T12-L1: Degenerate disc disease with minimal bulging disc and mild facet hypertrophic change. 3. L3-L4: There is a small left-sided foraminal disc protrusion resulting in moderate left-sided foraminal narrowing. Facet and ligamentum hypertrophy is noted with moderate left lateral recess narrowing. Borderline narrowing of the canal. 4. L4-5: Concentric bulging disc slightly eccentric toward the left with canal stenosis along with facet ligamentum hypertrophy with bilateral lateral recess and foraminal narrowing left greater than right. 5. The L5-S1: Facet ligamentum hypertrophy with mild bilateral foraminal narrowing. Dictated by: Uche Dias MD 04/27/2019 09:33 Electronically signed by Uche Dias MD in [place] 04/27/2019 09:33
--- NOTE | 2019-04-25 15:29 | XR_ITS ---
PROCEDURE: XR ANKLE WT BEARING LT MIN 3V CLINICAL INDICATION: Post Op Follow-up ORIF COMPARISON: XR ANKLE WT BEARING LT MIN 3V from 12/13/2018 XR ANKLE WT BEARING LT MIN 3V from 01/03/2019 XR ANKLE WT BEARING LT MIN 3V from 01/30/2019 XR ANKLE WT BEARING LT MIN 3V from 02/27/2019 FINDINGS: The cast has been removed. Status post ORIF distal tibia and distal fibula with mild widening of the ankle mortise. Calcification is present at the inferior syndesmotic region of the tib fib. Fractured screws noted in the distal tibia. IMPRESSION: Overall no change status post ORIF distal tib fib with persistent widening of the ankle mortise Dictated by: Uche Dias MD 04/25/2019 16:00 Electronically signed by Uche Dias MD in [place] 04/25/2019 16:00
== END ==
PROVIDERS: PCP Nurse Practitioner Family; Visit Provider Nurse Practitioner Family
DX: Z98.890 Other specified postprocedural states (principal); S99.912D Unspecified injury of left ankle, subsequent encounter; M54.5 Low back pain
CPT/HCPCS: 72148; 73610; 76376

== ENCOUNTER → 2019-05-22 13:20 | Outpatient (CLI) | payer OTHER, SELFPAY ==
--- NOTE | 2019-05-22 13:35 | XR_ITS ---
PROCEDURE: XR CERVICAL SPINE 5V CLINICAL INDICATION: CERVICAL PAIN,S/P CERVICAL SPINE FUSION,PARESTHESIA OF SKIN COMPARISON: No exams were available for comparison FINDINGS: Normal alignment. Prior anterior cervical disc fusion at C5-C6. There is mild degenerative disc disease at C3-C4 and C4-C5. Mild foraminal narrowing C4-C5 on the right. No fracture or dislocation. No lytic or blastic change IMPRESSION: Postsurgical changes from prior anterior cervical disc fusion at C5-C6 with cervical spondylosis Dictated by: Uche Dias MD 05/22/2019 14:44 Electronically signed by Uche Dias MD in [place] 05/22/2019 14:44
== END ==
PROVIDERS: PCP Nurse Practitioner Family; Visit Provider Nurse Practitioner Family
DX: M54.2 Cervicalgia (principal); R20.2 Paresthesia of skin; R20.0 Anesthesia of skin; Z98.1 Arthrodesis status
CPT/HCPCS: 72050

== ENCOUNTER → 2020-02-15 11:45 | Outpatient (CLI) | payer OTHER, SELFPAY ==
[2020-02-15 12:35] LABS: Basophils # 0.1 K/mm3 (0-0.2); Basophils % 1.2 % (0.1-2.0); Eosinophils # 0.3 K/mm3 (0.0-0.4); Eosinophils % 4.2 % (0.1-12.0); Hematocrit 43.7 % (37.0-47.0); Hemoglobin 14.1 g/dL (12.2-16.2); Lymphocytes # 1.9 K/mm3 (0.7-4.5); Mean Corpuscular HGB Conc 32.3 g/dL (31.8-35.4); Mean Corpuscular Hemoglobin 27.3 pg (27.0-31.2); Mean Corpuscular Volume 84.4 fl (81-99); Mean Platelet Volume 10.2 fl (7.4-10.4); Monocytes # 0.4 K/mm3 (0.1-1.0); Monocytes % 5.8 % (1.7-9.3); Neutrophils # 3.9 K/mm3 (1.8-7.8); Neutrophils % 59.8 % (37.0-80.0); Platelet Count 226 K/mm3 (142-424); Red Blood Count 5.18 M/mm3 (4.20-5.40); Red Cell Distribution Width 14.9 % (11.5-17.5); White Blood Count 6.5 K/mm3 (4.8-10.8)
[2020-02-15 14:54] LABS: Chloride 105 mmol/L (98-107); Sodium 139 mmol/L (136-145)
[2020-02-15 14:55] LABS: Potassium 4.4 mmoL/L (3.5-5.1)
[2020-02-15 14:57] LABS: Alanine Aminotransferase 38 U/L (12-78); Albumin Level 4.2 g/dl (3.5-5.0); Albumin/Globulin Ratio 1.4 (1.1-1.8); Alkaline Phosphatase 116 U/L (38-126); Anion Gap 12.4 mEq/L (5-15); Aspartate Amino Transferase 40 U/L (14-36); Bilirubin,Total 0.4 mg/dl (0.2-1.3); Blood Urea Nitrogen 21 mg/dl (7-17); Carbon Dioxide 26 mmol/L (22.0-30.0); Estimated Glomerular Filt Rate 59 ml/min (>60); GFR (African American) 71 ML/MIN (>60); Globulin 2.9 g/dL (1.3-3.2); Total Protein,Serum 7.1 g/dl (6.3-8.2)
[2020-02-15 14:58] LABS: Calcium 9.7 mg/dl (8.4-10.2); Glucose 101 mg/dl (74-100)
== END ==
PROVIDERS: Visit Provider Internal Medicine Medical Oncology
DX: C50.912 Malignant neoplasm of unspecified site of left female breast (principal)
CPT/HCPCS: 36415; 80053; 85025

== ENCOUNTER → 2020-02-22 12:48 | Outpatient (CLI) | payer OTHER, SELFPAY ==
--- NOTE | 2020-02-22 12:57 | MM_ITS ---
PROCEDURE: MM DIG SC MAMM UNILAT RT CAD Digital Breast Tomosynthesis Included CLINICAL INDICATION: SCREENING rt, masectomy lt there is a history of breast cancer in the patient's 3 maternal aunts COMPARISON: MG MAMMO - DIGITAL AMY SCREEN RT from 02/03/2017 MG MAMMO - DIGITAL AMY SCREEN RT from 02/17/2018 MG MM DIG SC MAMM UNILAT RT CAD from 01/09/2019 TECHNIQUE: Standard CC and MLO images and 3D Tomosynthesis was obtained. R2 CAD reviewed. FINDINGS: Scattered fibroglandular densities are seen in the breast. There is a stable benign-appearing nodular density near the axillary tail likely a low-lying node. There are 3 tiny nodular densities abutting one another lower portion right breast likely micro cysts. There is no new or suspicious lesion and no suspicious microcalcifications. IMPRESSION: Fibrofatty parenchyma with no suspicious lesions seen BI-RAD Category: 2 Benign Finding(s) FOLLOW-UP: 1YR 1 Year Follow-up (A letter has been sent to the patient regarding results of the study.) Dictated by: Dr. Chapito Pat MD 02/27/2020 09:44 Dr. Chapito Pat MD in [place] 02/27/2020 09:44
== END ==
PROVIDERS: PCP Family Medicine; Visit Provider Internal Medicine Medical Oncology
DX: Z12.31 Encounter for screening mammogram for malignant neoplasm of breast (principal)
CPT/HCPCS: 77063; 77067

== ENCOUNTER → 2020-03-25 11:20 | Outpatient (CLI) | payer OTHER, SELFPAY ==
[2020-03-25 15:50] LABS: Coronavirus 19 IgG Antibody Negative (Negative); Coronavirus 19 IgM Antibody Negative (Negative)
== END ==
PROVIDERS: Visit Provider Surgery
DX: Z01.818 Encounter for other preprocedural examination (principal); Z12.11 Encounter for screening for malignant neoplasm of colon
CPT/HCPCS: 36415; 86328

== ENCOUNTER 2020-03-26 07:08 | Day surgery (SDC) | payer OTHER, SELFPAY ==
[2020-03-26 07:39] VITALS: BP 188/89; PULSE 58; RESP 18; TEMP 36.2; O2SAT 99; BMI 37.5
--- NOTE | 2020-03-26 08:11 | HMH.ANESCL ---
[facility] Anesthesia Checklist - Patient Identification Patient Identification: Arm Band, Verbal (Name & ) - Structural Data Admitted From: Home Planned Operative Procedure/s: colon Consent for Planned Operative Procedure(s) Verified: Yes Verified Documents: History and Physical - NPO Status Verified Time NPO: 00:00 - Additional verifications Patient : No Anesthesia Reactions: No Hx Blood Transfusions: No Blood Transfusion Reaction: No Cephalosporin Allergy: No Previous Colonoscopy: No - Cardiovascular Assessment Heart Sounds: S1 & S2 Pulse Strength: Baseline Pulse Rhythm: Regular Peripheral Edema: No - Airway Assessment C-Spine Mobility Assessed: Yes TMJ Mobility Assessed: Yes Dentition: Good Dentition - Neurological Assessment Level of Consciousness: Awake, Alert, Appropriate Hx Seizures: No Numbness or tingling in extremities: No - Anesthesia Plan Anesthesia Risk discussed: Yes Anesthesia Plan: Verified ASA Class: II Anesthesia Type: MAC [facility] History I have reviewed the patient's past medical history: Yes Medical History: Reports:: Anxiety, Cancer (breast), Depression, Hypertension Denies:: Diabetes Mellitus Type 1, Diabetes Mellitus Type 2, Internal Pacemaker, Lung Disease, MRSA, Seizures *Have you ever received a pneumonia vaccine?: Yes *Have you received a flu vaccine this season?: Yes Other Medical History: Denies: Blood Transfusion Reaction Anesthesia experience/problems:: none Laterality Cases: Left: Breast Biopsy, Mastectomy, Other Other Surgeries: Yes: Cholecystectomy, Hysterectomy-Total, Other. No: Pacemaker Amputation: No Fractures: Yes - *Social History Last grade of school completed: High school graduate Smoking Status: Never smoker Tobacco Type: cigarettes # Packs/Day (cigarettes): 1 Alcohol Intake: never Alcohol Intake Frequency:: other Substance Use Type: denies use *Occupational Status:: unemployed Housing: apartment Household Members: none *Travel in the last 8 weeks: None - Psychiatric History Pschychiatric History:: Reports:: Anxiety, Depression Family Hx:: Cancer, Stroke, Heart Attack, Hypertension
[2020-03-26 08:21] VITALS: O2SAT 97
[2020-03-26 08:53] VITALS: BP 74/46; PULSE 61; RESP 12; TEMP 36.4; O2SAT 100
--- NOTE | 2020-03-26 08:55 | HMH.SCOPE ---
- Procedure: Date: 03/26/20 Patient Date of :: 1970 Procedure Performed:: Total colonoscopy to terminal ileum with polypectomy by snare Indications:: Patient is a 49-year-old female referred for initial screening colonoscopy. Patient states that she had previously been recommended to have colonoscopy for screening purposes. She denies any rectal bleeding. She denies any known family history of colon cancer. However, she states that she may have a distant family with colon cancer. Of note, patient has previously had hysterectomy for benign disease by Dr. Billingsley. She has had a left modified radical mastectomy for breast cancer. Performing Provider:: Aiden Sheriff MD Referring Provider:: Bryson Weathers MD Sedation:: MAC sedation Procedure:: Patient was taken to endoscopy procedure room. She was positioned in a lateral decubitus position. Adequate intravenous sedation was achieved with anesthesia titration of propofol. Variable stiffness Olympus colonoscope was inserted via the anus. Was advanced to the cecum. There was some liquid stool containing particulate food matter. Thorough suctioning was performed. Within the cecum ileocecal valve and appendiceal orifice were clearly identified. Colonoscope was advanced into the terminal ileum which appeared grossly normal. Within the cecum there was a tiny diminutive polyp removed with cold biopsy forceps. Adjacent to this there was a sessile possibly serrated polyp removed with cold cutting snare. In the distal transverse colon there were similar small polyp and a adjacent sessile polyp removed with cold snare. Within the sigmoid colon there is a pedunculated and adenomatous polyp removed in a piecemeal fashion with cold cutting snare. Retroflexion within the rectum revealed no evidence of pathologic internal hemorrhoids. Colonoscope was withdrawn. Findings:: Diminutive cecal polyp removed with cold biopsy forceps Sessile cecal polyp removed with snare Distal transverse colon diminutive polyp removed with snare Distal transverse colon sessile polyp removed with snare Adenomatous sigmoid polyp removed in a piecemeal fashion using cold cutting snare Recommendations:: Pending the pathology likely repeat colonoscopy in 3 years Complications:: None immediately apparent Estimated blood obtained (mL): 2
[2020-03-26 09:03] VITALS: BP 109/71; PULSE 60; RESP 16; O2SAT 100
[2020-03-26 09:13] VITALS: BP 121/84; PULSE 60; RESP 16; O2SAT 100
[2020-03-26 09:23] VITALS: BP 134/74; PULSE 58; RESP 16; TEMP 36.4; O2SAT 99
== END 2020-03-26 09:24 | disposition home or self-care (01) ==
LOC: OUTP 07:09
PROVIDERS: PCP Family Medicine; Visit Provider Surgery
PROC: 0DJD8ZZ Inspection of Lower Intestinal Tract, Via Natural or Artificial Opening Endoscopic (ICD-10-PCS; CPT 45385; principal; 2020-03-26 08:30)
DX: Z12.11 Encounter for screening for malignant neoplasm of colon (principal); K63.5 Polyp of colon; Z85.3 Personal history of malignant neoplasm of breast; I10 Essential (primary) hypertension; F41.9 Anxiety disorder, unspecified; F32.9 Major depressive disorder, single episode, unspecified; Z82.3 Family history of stroke; Z80.9 Family history of malignant neoplasm, unspecified; Z82.49 Family history of ischemic heart disease and other diseases of the circulatory system; Z79.899 Other long term (current) drug therapy
CPT/HCPCS: 45385

== ENCOUNTER 2020-05-25 07:38 | Emergency (ER) | payer OTHER, SELFPAY ==
[2020-05-25 07:39] VITALS: BP 132/95; PULSE 90; RESP 20; TEMP 36.5; O2SAT 99; BMI 30.2
--- NOTE | 2020-05-25 08:03 | XR_ITS ---
PROCEDURE: XR CHEST 2V CLINICAL HISTORY: chest burning/pain COMPARISON: CR XR CHEST 2V from 11/23/2018 CR XR CHEST 2V from 12/23/2018 FINDINGS: The cardiomediastinal silhouette and pulmonary vascularity are within normal limits. The lungs are clear without infiltrates, suspicious nodules, or pleural effusions. Mild lower thoracic curvature convex right. Prior anterior cervical disc fusion in the lower cervical spine. Prior cholecystectomy IMPRESSION: No acute findings. Dictated by: Uche Dias MD 05/25/2020 08:24 Uche Dias MD in [place] 05/25/2020 08:24
[2020-05-25 08:07] LABS: Strep Scrn Group A (Rapid) Negative (Negative)
--- NOTE | 2020-05-25 08:07 | HMH.EDGENADL ---
ED Disposition Clinical Impression: Dehydration, Viral URI Vomiting Qualifiers: Vomiting type: unspecified Vomiting Intractability: unspecified Nausea presence: with nausea Qualified Code(s): R11.2 - Nausea with vomiting, unspecified Disposition: Home, Self-Care Condition on Discharge: Good Instructions: DI for Vomiting -- Adult, DI for Dehydration -- Adult, DI for Viral Upper Respiratory Infection -- Adult Additional Instructions: Zofran as needed for nausea and vomiting. Rest, drink plenty of fluids. Tylenol or ibuprofen as needed for pain or fever. Keflex as prescribed. Follow-up urine culture results with your primary care provider in 2 to 3 days. Call back to the emergency department in 4 hrs to obtain your COVID-19 test result. Quarantine yourself until you obtain your result. Prescriptions: cephALEXin [cephALEXin 500mg capsule*] 500 mg PO Q6H #28 cap Transmission Status: Pending to [facility] Ondansetron [Zofran 4mg ODT] 4 mg PO TIDP PRN #10 tab.rapdis PRN Reason: Nausea And Vomiting Transmission Status: Pending to [facility] Referrals: Bryson Weathers MD [Primary Care Provider] - - Critical Care Critical Care Time: No Attestation: On 05/25/20, the high probability of a clinically significant, sudden or life threatening deterioration of the following system(s) required my full and direct attention, intervention and personal management. The time I documented below is in addition to time spent performing reported procedures but includes the following listed in this critical care notation. Medical Decision Making - Tej Inquiry Pt receiving controlled substance: No Vital Signs: 05/25/20 07:39 Temperature 97.7 F Temperature Source Oral Pulse Rate [Left Radial] 90 Respiratory Rate 20 Blood Pressure [Right Arm] 132/95 H Blood Pressure Mean [Right Arm] 107 Blood Pressure Source [Right Arm] Automatic Cuff Blood Pressure Position [Right Arm] Sitting 02 Sat by Pulse Oximetry 99 Oxygen Delivery Method Room Air - Lab Data Lab results reviewed: Yes: I reviewed the patient's lab results. Lab Results 05/25/20 07:53: Influenza Type A Ag Negative, Influenza Type B Ag Negative 05/25/20 07:53: Group A Strep Rapid Negative 05/25/20 07:53: Urine Color Yellow, Urine Appearance Sl cloudy, Urine pH 5.5, Ur Specific [place] >= 1.030, Urine Protein Negative, Urine Glucose (UA) Negative, Urine Ketones Negative, Urine Blood Trace-i, Urine Nitrate Positive, Urine Bilirubin Negative, Urine Urobilinogen 0.2, Ur Leukocyte Esterase Negative, Urine RBC 3-5, Urine WBC 5-10, Ur Squamous Epith Cells 20-50, Urine Bacteria 3+ 05/25/20 08:10: WBC 13.9 H, RBC 5.62 H, Hgb 15.3, Hct 47.2 H, MCV 84.0, MCH 27.3, MCHC 32.5, RDW 14.8, Plt Count 301, MPV 9.6, Neut % (Auto) 82.3 H, Lymph % (Auto) 12.1, [place] % (Auto) 4.4, Eos % (Auto) 0.8, Baso % (Auto) 0.3, Neut # (Auto) 11.4 H, Lymph # (Auto) 1.7, [place] # (Auto) 0.6, Eos # (Auto) 0.1, Baso # (Auto) 0.0 05/25/20 08:10: Sodium 142, Potassium 3.8, Chloride 105, Carbon Dioxide 27, Anion Gap 13.8, BUN 21 H, Creatinine 1.30 H, Estimated Creat Clear 62, Estimated GFR 44 L, Est GFR ( Amer) 53 L, Glucose 141 H, Calcium 10.5 H, Total Bilirubin 0.4, AST 24, ALT 19, Alkaline Phosphatase 139 H, Troponin I < 0.01, Total Protein 8.3 H, Albumin 4.7, Globulin 3.6 H, Albumin/Globulin Ratio 1.3 Result diagrams: 05/25/20 08:10 05/25/20 08:10 Orders (Tests/Meds): ED MEDICATIONS Generic Name Dose Route Start Last Admin Trade Name Freq PRN Reason Stop Dose Admin Sodium Chloride 1,000 mls @ 999 mls/hr 05/25/20 08:15 05/25/20 08:06 Sod Chlor 0.9% 1000ml Bag IV 05/25/20 09:15 999 mls/hr .Q1H1M ALPHONSO Administration Ceftriaxone Sodium 1 gm/ 50 mls @ 100 mls/hr 05/25/20 09:00 Sodium Chloride IV 06/08/20 08:59 Q24H ALPHONSO Protocol Discontinued Medications Generic Name Dose Route Start Last Admin Trade Name Freq PRN Reason Stop Dose Admin Doron Bonilla
[2020-05-25 08:08] LABS: Microscopic, Urine URINE MICROSCOPIC (MICROSCOPIC)
[2020-05-25 08:10] LABS: Appearance,Urine SL CLOUDY (Clear); Bilirubin,Urine Negative (Negative); Blood, Urine TRACE-I (Negative); Color,Urine YELLOW (Yellow); Glucose,Urine (UA) Negative (Negative); Ketones,Urine Negative (Negative); Leukocyte Esterase,Urine Negative (Negative); Nitrate,Urine POSITIVE (Negative); PH,Urine 5.5 (5.0-8.5); Protein,Urine Negative (Negative); Specific Gravity, Urine >= 1.030 (1.005-1.030); Urobilinogen,Urine 0.2 EU/dl (0.2)
--- NOTE | 2020-05-25 08:14 | ECG_ITS ---
APPROVED REPORT Exam: Resting ECG HR:67 bpm ECG Measurements Heart Rate 67 AXES ME 142 P 16 QRSd 80 QRS 42 QT 414 T 57 QTc 437 Conclusion Normal sinus rhythm Normal ECG Electronically signed by : Bryson Montiel, 05/27/2020 06:56:39
[2020-05-25 08:18] LABS: Basophils % 0.3 % (0.1-2.0); Eosinophils # 0.1 K/mm3 (0.0-0.4); Eosinophils % 0.8 % (0.1-12.0); Hematocrit 47.2 % (37.0-47.0); Hemoglobin 15.3 g/dL (12.2-16.2); Lymphocytes # 1.7 K/mm3 (0.7-4.5); Lymphocytes % 12.1 % (10-50); Mean Corpuscular HGB Conc 32.5 g/dL (31.8-35.4); Mean Corpuscular Hemoglobin 27.3 pg (27.0-31.2); Mean Platelet Volume 9.6 fl (7.4-10.4); Monocytes # 0.6 K/mm3 (0.1-1.0); Monocytes % 4.4 % (1.7-9.3); Neutrophils # 11.4 K/mm3 (1.8-7.8); Neutrophils % 82.3 % (37.0-80.0); Platelet Count 301 K/mm3 (142-424); Red Blood Count 5.62 M/mm3 (4.20-5.40); Red Cell Distribution Width 14.8 % (11.5-17.5); White Blood Count 13.9 K/mm3 (4.8-10.8)
[2020-05-25 08:18] LABS: Bacteria,Urine 3+ /lpf; Squamous Epithelial Cell,Urine 20-50 #/hpf (0-5)
[2020-05-25 08:24] LABS: Chloride 105 mmol/L (98-107); Potassium 3.8 mmoL/L (3.5-5.1); Sodium 142 mmol/L (136-145)
[2020-05-25 08:26] LABS: Blood Urea Nitrogen 21 mg/dl (7-17); Creatinine Clearance Estimated 62 mL/min (50-200); Estimated Glomerular Filt Rate 44 ml/min (>60); GFR (African American) 53 ML/MIN (>60)
[2020-05-25 08:27] LABS: Alanine Aminotransferase 19 U/L (12-78); Albumin Level 4.7 g/dl (3.5-5.0); Albumin/Globulin Ratio 1.3 (1.1-1.8); Alkaline Phosphatase 139 U/L (38-126); Anion Gap 13.8 mEq/L (5-15); Aspartate Amino Transferase 24 U/L (14-36); Bilirubin,Total 0.4 mg/dl (0.2-1.3); Calcium 10.5 mg/dl (8.4-10.2); Carbon Dioxide 27 mmol/L (22.0-30.0); Globulin 3.6 g/dL (1.3-3.2); Glucose 141 mg/dl (74-100); Total Protein,Serum 8.3 g/dl (6.3-8.2)
[2020-05-25 08:41] LABS: Troponin I < 0.01 ng/ml (0.00-0.034)
[2020-05-25 09:09] VITALS: BP 125/64; PULSE 73; O2SAT 96
[2020-05-25 09:20] VITALS: BP 125/64; PULSE 88; RESP 20; TEMP 36.5; O2SAT 95
== END 2020-05-25 09:47 | disposition home or self-care (01) ==
PROVIDERS: Emergency Provider Emergency Medicine; PCP Family Medicine
DX: Z20.822 Contact with and (suspected) exposure to COVID-19 (principal); J06.9 Acute upper respiratory infection, unspecified; E86.0 Dehydration; F41.8 Other specified anxiety disorders; I10 Essential (primary) hypertension
CPT/HCPCS: 71046; 80053; 81001; 84484; 85025; 87086; 87088; 87186; 87275; 87276; 87430; 93005; 96365; 96375; 99283; J2405; U0003

== ENCOUNTER → 2021-02-05 17:03 | Outpatient (CLI) | payer OTHER, SELFPAY ==
--- NOTE | 2021-02-05 | XR_ITS ---
PROCEDURE INFORMATION: Exam: XR Right Shoulder Exam date and time: 02/05/2021 12:00 AM Age: 50 years old Clinical indication: Right; Patient HX: Shoulder pain for a few weeks, no injury TECHNIQUE: Imaging protocol: XR Right shoulder. Views: 2 or more views. COMPARISON: CR XR CHEST 2V 05/25/2020 8:09 AM FINDINGS: Bones/joints: Degenerative changes in the acromioclavicular joint and glenohumeral joint. There is no evidence of acute fracture.There is no evidence of malalignment or dislocation. Plate and screws in the cervical spine Soft tissues: Normal. IMPRESSION: There is no evidence of acute fracture.There is no evidence of malalignment or dislocation.
== END ==
PROVIDERS: PCP Nurse Practitioner Family; Visit Provider Nurse Practitioner Family
DX: M25.511 Pain in right shoulder (principal); M25.611 Stiffness of right shoulder, not elsewhere classified
CPT/HCPCS: 73030

== ENCOUNTER → 2021-02-24 13:55 | Outpatient (CLI) | payer OTHER, SELFPAY ==
[2021-02-24 14:30] LABS: Amphetamine/Metha Screen,Urine Negative ng/ml (<1000)
[2021-02-24 14:32] LABS: Cannabinoid Screen,Urine Positive ng/ml (<50)
[2021-02-24 14:33] LABS: Barbiturates Screen,Urine Negative ng/ml (<200); Benzodiazepines Screen,Urine Negative ng/ml (<200)
[2021-02-24 14:34] LABS: Cocaine Screen,Urine Negative ng/ml (<300); Methadone Screen,Urine Negative ng/ml (<300)
[2021-02-24 14:35] LABS: Opiate Screen,Urine Negative ng/ml (<300)
[2021-02-24 14:36] LABS: Phencyclidine Screen,Urine Negative ng/ml (<25)
== END ==
PROVIDERS: Visit Provider Family Medicine
DX: M54.2 Cervicalgia (principal); G89.29 Other chronic pain
CPT/HCPCS: 80305

== ENCOUNTER 2021-09-27 17:32 | Emergency (ER) | payer OTHER, SELFPAY ==
[2021-09-27 21:04] VITALS: BP 136/98; PULSE 79; RESP 18; TEMP 36.9; O2SAT 99; BMI 31.1
--- NOTE | 2021-09-27 21:58 | HMH.EDGENADL ---
ED Disposition Clinical Impression: Fracture of tooth, Dental caries Disposition: Home, Self-Care Condition on Discharge: Good Instructions: DI for Tooth Decay Additional Instructions: Follow-up with your dentist to the dental clinic as instructed. Use the antibiotics as prescribed Prescriptions: clindamycin HCL [Clindamycin HCl] 300 mg PO TID 7 Days #21 cap Transmission Status: Received by [facility] #[id number] Referrals: Christel Pride APRN [Primary Care Provider] - - Critical Care Critical Care Time: No Attestation: On 09/27/21, the high probability of a clinically significant, sudden or life threatening deterioration of the following system(s) required my full and direct attention, intervention and personal management. The time I documented below is in addition to time spent performing reported procedures but includes the following listed in this critical care notation. Medical Decision Making - Medical Records Medical records reviewed: Yes: I reviewed the patient's medical records. - Tej Inquiry Pt receiving controlled substance: No Vital Signs: 09/27/21 21:04 09/27/21 22:21 Temperature 98.4 F 98.4 F Temperature Source Oral Oral Pulse Rate 70 Pulse Rate [Right] 79 Respiratory Rate 18 18 Blood Pressure 124/74 Blood Pressure [Right Arm] 136/98 H Blood Pressure Mean [Right Arm] 110 02 Sat by Pulse Oximetry 99 Orders (Tests/Meds): ED MEDICATIONS Discontinued Medications Generic Name Dose Route Start Last Admin Trade Name Freq PRN Reason Stop Dose Admin Benzocaine/Butamben/Tetracaine HCl 1 gm 09/27/21 22:10 09/27/21 22:14 Tetracaine/Benzocaine/Butamben 56 Gm [place] TP 09/27/21 22:11 1 gm ONCE ONE Administration Lidocaine HCl 5 ml 09/27/21 21:34 09/27/21 21:38 Lidocaine 1% 10ml Mdv SQ 09/27/21 21:35 5 ml ONCE ONE Administration Lidocaine HCl 15 ml 09/27/21 22:10 09/27/21 22:14 Lidocaine 2% Viscous Carli 15ml Udc PO 09/27/21 22:11 15 ml ONCE ONE Administration Medical Decision Narrative: Patient has a fractured decayed lower mandibular molar. No evidence of abscess or Arvind's angina. Will be started on clindamycin given a dental block and tooth balls. Instructed to follow-up with dentistry on Wednesday. General Adult HPI - General Chief complaint: Dental/Oral Stated complaint: broken tooth Time Seen by Provider: 09/27/21 21:58 Mode of Arrival: Ambulatory Limitations: No Limitations Description of Symptoms (Recalled from ER Triage Doc. by RN): pt states bottom lt tooth broke off this am. pt c/o lt tooth and gum pain - History of Present Illness HPI narrative: 50-year-old female presents with a broken tooth over the past 24 hours. Patient states that it is causing her significant amount of pain 5 out of 10 at this point time and is sharp and burning. Denies swelling of the face changes in the voice or difficulty swallowing. Denies fevers chills or body aches. Has not had she has follow-up with her dentist at this time. No medication prior to arrival. - Related Data Home Medications Medication Instructions Recorded Confirmed lisinopriL [Lisinopril 20mg Tab] 20 mg PO DAILY 03/26/20 02/24/21 buspirone 10 mg tablet 10 mg PO BID 02/24/21 02/24/21 duloxetine 60 mg capsule,delayed 60 mg PO DAILY cap 02/24/21 02/24/21 release ibuprofen 800 mg tablet 800 mg PO Q8H tab 02/24/21 02/24/21 meloxicam 15 mg tablet 15 mg PO DAILY tab 02/24/21 02/24/21 Previous Rx's Medication Instructions Recorded Ondansetron [Zofran 4mg ODT] 4 mg PO TIDP PRN #10 tab.rapdis 05/25/20 tramadol 50 mg tablet 50 mg PO TID PRN #45 tab 02/24/21 quetiapine 25 mg tablet 25 mg PO HS #30 tab 04/02/21 clindamycin HCL [Clindamycin HCl] 300 mg PO TID 7 Days #21 cap 09/27/21 Allergies Allergy/AdvReac Type Severity Reaction Status Date / Time No Known Allergies Allergy Verified 02/24/21 09:47 [facility] History - Hepatitis A Screen Att
[2021-09-27 22:21] VITALS: BP 124/74; PULSE 70; RESP 18; TEMP 36.9; O2SAT 99
== END 2021-09-27 22:21 | disposition home or self-care (01) ==
PROVIDERS: Emergency Provider Student in an Organized Health Care Education/Training Program; PCP Nurse Practitioner Family
DX: S02.5XXA Fracture of tooth (traumatic), initial encounter for closed fracture (principal); F32.A Depression, unspecified; F41.9 Anxiety disorder, unspecified; I10 Essential (primary) hypertension; Z85.9 Personal history of malignant neoplasm, unspecified; Z79.1 Long term (current) use of non-steroidal anti-inflammatories (NSAID); Z79.899 Other long term (current) drug therapy; Z82.49 Family history of ischemic heart disease and other diseases of the circulatory system; Z80.9 Family history of malignant neoplasm, unspecified
CPT/HCPCS: 99283

== ENCOUNTER → 2021-09-30 14:21 | Outpatient (CLI) | payer OTHER, SELFPAY ==
--- NOTE | 2021-09-30 14:25 | XR_ITS ---
FINAL REPORT CLINICAL HISTORY: LT ANKLE/JOINT PAIN FINDINGS: LEFT FOOT Three views of the left foot demonstrate no acute fracture or dislocation. The visualized joint spaces are normally aligned. There is mild degenerative change. There is mild lateral subluxation and angulation of the 1st distal phalanx at the 1st interphalangeal joint. The soft tissues are unremarkable. IMPRESSION: Mild degenerative change. Mild lateral subluxation and angulation of the 1st distal phalanx. Reviewed, Interpreted and Dictated by Aiden Hull III, MD Transcribed by Zee Interiano Authenticated and [facility]
--- NOTE | 2021-09-30 14:25 | XR_ITS ---
FINAL REPORT CLINICAL HISTORY: LT ANKLE/JOINT PAIN COMPARISON: April 25, 2019 FINDINGS: LEFT ANKLE: Three views of the left ankle were obtained. There are postoperative changes of the distal tibia and fibula. There is a broken screw in the medial distal tibia that is stable. There is no acute fracture or dislocation. There are mild degenerative changes. There is no soft tissue abnormality. IMPRESSION: Mild degenerative change with no acute bony abnormality. Postoperative and stable findings as above. Reviewed, Interpreted and Dictated by Aiden Hull III, MD Transcribed by Zee Interiano Authenticated and [facility]
== END ==
PROVIDERS: PCP Nurse Practitioner Family; Visit Provider Family Medicine
DX: M25.572 Pain in left ankle and joints of left foot (principal)
CPT/HCPCS: 73610; 73630

== ENCOUNTER → 2021-11-05 13:55 | Outpatient (CLI) | payer OTHER, SELFPAY ==
[2021-11-05 14:19] LABS: Basophils # 0.1 K/mm3 (0-0.2); Basophils % 0.6 % (0.1-2.0); Eosinophils # 0.2 K/mm3 (0.0-0.4); Eosinophils % 2.9 % (0.1-12.0); Hematocrit 39.7 % (37.0-47.0); Lymphocytes # 2.1 K/mm3 (0.7-4.5); Lymphocytes % 26.8 % (10-50); Mean Corpuscular HGB Conc 32.7 g/dL (31.8-35.4); Mean Corpuscular Hemoglobin 28.1 pg (27.0-31.2); Mean Corpuscular Volume 85.9 fl (81-99); Monocytes # 0.5 K/mm3 (0.1-1.0); Monocytes % 6.4 % (1.7-9.3); Neutrophils % 63.3 % (37.0-80.0); Platelet Count 278 K/mm3 (142-424); Red Blood Count 4.62 M/mm3 (4.20-5.40); Red Cell Distribution Width 14.3 % (11.5-17.5); White Blood Count 7.9 K/mm3 (4.8-10.8)
[2021-11-05 14:50] LABS: Chloride 102 mmol/L (98-107); Sodium 138 mmol/L (136-145)
[2021-11-05 14:53] LABS: Alanine Aminotransferase 50 U/L (12-78); Albumin Level 4.3 g/dl (3.5-5.0); Alkaline Phosphatase 211 U/L (38-126); Aspartate Amino Transferase 62 U/L (14-36); Bilirubin,Direct 0.1 mg/dl (0.0-0.4); Bilirubin,Indirect 0.3 mg/dL (0.0-0.9); Bilirubin,Total 0.4 mg/dl (0.2-1.3); Bilirubin,Unconjugated 0.3 mg/dL (0.0-1.1); Blood Urea Nitrogen 13 mg/dl (7-17); Calcium 10.1 mg/dl (8.4-10.2); Carbon Dioxide 28 mmol/L (22.0-30.0); Estimated Glomerular Filt Rate 53 ml/min (>60); GFR (African American) 64 ML/MIN (>60); Glucose 111 mg/dl (74-100); Total Protein,Serum 7.1 g/dl (6.3-8.2)
[2021-11-07 23:20] LABS: Hep A Ab, IgM NEGATIVE; Hepatitis B Core Antibody IgM NEGATIVE; Hepatitis B Surface Antigen NEGATIVE; Hepatitis C Antibody <0.1
[2021-11-08 23:22] LABS: HIV Screen 4th Generation wRfx Non Reactive
== END ==
PROVIDERS: PCP Nurse Practitioner Family; Visit Provider Anesthesiology
DX: F11.20 Opioid dependence, uncomplicated (principal); Z11.4 Encounter for screening for human immunodeficiency virus [HIV]
CPT/HCPCS: 36415; 80048; 80074; 80076; 85025; 86703; G0432